=== PATIENT | male | born 1975 | race Caucasian/White ===

== ENCOUNTER 2021-08-14 18:25 | Outpatient (REF) | payer OTHER, SELFPAY | END 2021-08-14 18:26 | disposition home or self-care (01) | LOC: HO.LNP 18:25 | PROVIDERS: Visit Provider Family Medicine | DX: Z20.822 Contact with and (suspected) exposure to COVID-19 (principal); B34.9 Viral infection, unspecified | CPT/HCPCS: U0003; U0005 ==

== ENCOUNTER 2021-11-13 10:20 | Outpatient (REF) | payer OTHER, SELFPAY ==
[2021-11-13 10:45] LABS: MANUAL DIFF FLAG NO
[2021-11-13 10:58] LABS: Basophils Absolute Auto 0.1 X10*3/uL (0.0-0.2); Basophils Percent Auto 1.1 % (0-2); Eosinophils Absolute Auto 0.1 X10*3/uL (0.0-0.4); Eosinophils Percent Auto 2.5 % (0-4); Hematocrit 42.9 % (42.0-52.0); Hemoglobin 14.8 g/dl (14.0-18.0); Imm Gran Abs Auto 0.02 X10*3/uL (0.00-0.03); Imm Gran Pct Auto 0.4 % (0.0-0.4); Lymphocytes Absolute Auto 1.4 X10*3/uL (1.2-4.9); Lymphocytes Percent Auto 24.2 % (20-40); Mean Corpuscular HGB Conc 34.5 g/dl (31.0-36.0); Mean Corpuscular Hemoglobin 29.8 pg (27.0-33.0); Mean Corpuscular Volume 86.5 fL (80.0-98.0); Mean Platelet Volume 10.5 fL (9.4-12.4); Monocytes Absolute Auto 0.4 X10*3/uL (0.1-1.2); Monocytes Percent Auto 7.7 % (2-11); Neutrophils Absolute Auto 3.6 x10*3/uL (2.0-8.3); Neutrophils Percent Auto 64.1 % (45-73); Platelet Count 195 X10*3/uL (160-400); Red Blood Count 4.96 X10*6/uL (4.60-5.80); Red Cell Distribution Width 12.3 % (11.0-16.0); White Blood Count 5.6 X10*3/uL (4.8-10.8)
[2021-11-13 11:43] LABS: Alanine Aminotransferase 50 U/L (0-40); Albumin Level 4.6 g/dL (3.5-5.0); Alkaline Phosphatase 59 U/L (39-117); Anion Gap 11 (12-20); Aspartate Amino Transferase 23 U/L (5-37); Bilirubin Total 0.8 mg/dL (0.0-1.0); Blood Urea Nitrogen 12 mg/dL (9-16); Calcium 9.6 mg/dL (8.4-10.2); Carbon Dioxide 30 mmol/L (22-29); Chloride 104 mmol/L (96-108); Cholesterol 161 mg/dL; Estimated Glomerular Filt Rate > 60; Glucose Fasting 101 mg/dL (60-99); HDL Cholesterol 37 mg/dL; LDL Cholesterol Calculated 100 mg/dl; Sodium 141 mmol/L (135-145); Total Protein 7.1 g/dL (6.5-8.0); Triglycerides 121 mg/dL
[2021-11-13 11:49] LABS: Thyroid Stimulating Hormone 1.01 uIU/mL (0.32-4.0)
== END 2021-11-13 10:21 | disposition home or self-care (01) ==
LOC: HO.LAB 10:20
PROVIDERS: PCP Nurse Practitioner Family; Visit Provider Nurse Practitioner Family
DX: E78.00 Pure hypercholesterolemia, unspecified (principal)
CPT/HCPCS: 36415; 80053; 80061; 84443; 85025

== ENCOUNTER 2022-04-15 06:46 | Outpatient (REF) | payer OTHER, SELFPAY ==
[2022-04-15 07:00] LABS: MANUAL DIFF FLAG NO
[2022-04-15 07:23] LABS: Basophils Absolute Auto 0.1 X10*3/uL (0.0-0.2); Basophils Percent Auto 1.3 % (0-2); Eosinophils Absolute Auto 0.2 X10*3/uL (0.0-0.4); Eosinophils Percent Auto 3.2 % (0-4); Hematocrit 42.8 % (42.0-52.0); Hemoglobin 14.7 g/dl (14.0-18.0); Imm Gran Abs Auto 0.02 X10*3/uL (0.00-0.03); Imm Gran Pct Auto 0.3 % (0.0-0.4); Lymphocytes Absolute Auto 1.7 X10*3/uL (1.2-4.9); Lymphocytes Percent Auto 26.5 % (20-40); Mean Corpuscular HGB Conc 34.3 g/dl (31.0-36.0); Mean Corpuscular Hemoglobin 29.5 pg (27.0-33.0); Mean Corpuscular Volume 85.8 fL (80.0-98.0); Mean Platelet Volume 10.2 fL (9.4-12.4); Monocytes Absolute Auto 0.5 X10*3/uL (0.1-1.2); Monocytes Percent Auto 7.7 % (2-11); Neutrophils Absolute Auto 3.9 x10*3/uL (2.0-8.3); Platelet Count 191 X10*3/uL (160-400); Red Blood Count 4.99 X10*6/uL (4.60-5.80); Red Cell Distribution Width 12.3 % (11.0-16.0); White Blood Count 6.3 X10*3/uL (4.8-10.8)
[2022-04-15 07:55] LABS: Alanine Aminotransferase 50 U/L (0-40); Albumin Level 4.6 g/dL (3.5-5.0); Alkaline Phosphatase 61 U/L (39-117); Anion Gap 13 (12-20); Aspartate Amino Transferase 25 U/L (5-37); Blood Urea Nitrogen 15 mg/dL (9-16); Calcium 9.4 mg/dL (8.4-10.2); Carbon Dioxide 31 mmol/L (22-29); Chloride 103 mmol/L (96-108); Estimated Glomerular Filt Rate > 60; Glucose Random 96 mg/dL (60-115); Potassium 4.1 mmol/L (3.3-5.1); Sodium 143 mmol/L (135-145); Total Protein 6.9 g/dL (6.5-8.0)
== END 2022-04-15 06:47 | disposition home or self-care (01) ==
LOC: HO.LAB 06:46
PROVIDERS: PCP Nurse Practitioner Family; Visit Provider Nurse Practitioner Family
DX: E78.00 Pure hypercholesterolemia, unspecified (principal)
CPT/HCPCS: 36415; 80053; 85025

== ENCOUNTER 2022-12-11 10:25 | Outpatient (REF) | payer OTHER, SELFPAY ==
[2022-12-11 10:44] LABS: MANUAL DIFF FLAG NO
[2022-12-11 11:23] LABS: Basophils Absolute Auto 0.1 X10*3/uL (0.0-0.2); Basophils Percent Auto 1.2 % (0-2); Eosinophils Absolute Auto 0.2 X10*3/uL (0.0-0.4); Eosinophils Percent Auto 3.1 % (0-4); Hematocrit 43.7 % (42.0-52.0); Imm Gran Abs Auto 0.02 X10*3/uL (0.00-0.03); Imm Gran Pct Auto 0.3 % (0.0-0.4); Lymphocytes Absolute Auto 1.9 X10*3/uL (1.2-4.9); Lymphocytes Percent Auto 28.1 % (20-40); Mean Corpuscular HGB Conc 34.3 g/dl (31.0-36.0); Mean Corpuscular Hemoglobin 29.5 pg (27.0-33.0); Mean Corpuscular Volume 85.9 fL (80.0-98.0); Mean Platelet Volume 10.8 fL (9.4-12.4); Monocytes Absolute Auto 0.5 X10*3/uL (0.1-1.2); Monocytes Percent Auto 7.8 % (2-11); Neutrophils Percent Auto 59.5 % (45-73); Platelet Count 211 X10*3/uL (160-400); Red Blood Count 5.09 X10*6/uL (4.60-5.80); Red Cell Distribution Width 12.5 % (11.0-16.0); White Blood Count 6.7 X10*3/uL (4.8-10.8)
[2022-12-11 12:02] LABS: Alanine Aminotransferase 50 U/L (0-40); Albumin Level 4.7 g/dL (3.5-5.0); Alkaline Phosphatase 64 U/L (39-117); Anion Gap 13 (12-20); Aspartate Amino Transferase 25 U/L (5-37); Bilirubin Total 1.2 mg/dL (0.0-1.0); Blood Urea Nitrogen 13 mg/dL (9-16); Calcium 9.6 mg/dL (8.4-10.2); Carbon Dioxide 29 mmol/L (22-29); Chloride 104 mmol/L (96-108); Cholesterol 182 mg/dL; Estimated Glomerular Filt Rate > 60; Glucose Fasting 94 mg/dL (60-99); HDL Cholesterol 42 mg/dL; LDL Cholesterol Calculated 114 mg/dl; Sodium 142 mmol/L (135-145); Triglycerides 134 mg/dL
== END 2022-12-11 10:26 | disposition home or self-care (01) ==
LOC: HO.LAB 10:25
PROVIDERS: PCP Nurse Practitioner Family; Visit Provider Nurse Practitioner Family
DX: I10 Essential (primary) hypertension (principal); E78.00 Pure hypercholesterolemia, unspecified
CPT/HCPCS: 36415; 80053; 80061; 85025

== ENCOUNTER 2023-04-16 09:48 | Outpatient (REF) | payer OTHER, SELFPAY ==
[2023-04-16 09:58] LABS: MANUAL DIFF FLAG NO
[2023-04-16 10:13] LABS: Basophils Absolute Auto 0.1 X10*3/uL (0.0-0.2); Basophils Percent Auto 0.8 % (0-2); Eosinophils Absolute Auto 0.2 X10*3/uL (0.0-0.4); Eosinophils Percent Auto 3.6 % (0-4); Hemoglobin 15.2 g/dl (14.0-18.0); Imm Gran Abs Auto 0.02 X10*3/uL (0.00-0.03); Imm Gran Pct Auto 0.3 % (0.0-0.4); Lymphocytes Absolute Auto 1.6 X10*3/uL (1.2-4.9); Lymphocytes Percent Auto 25.5 % (20-40); Mean Corpuscular HGB Conc 34.5 g/dl (31.0-36.0); Mean Corpuscular Hemoglobin 29.3 pg (27.0-33.0); Mean Corpuscular Volume 84.8 fL (80.0-98.0); Mean Platelet Volume 10.2 fL (9.4-12.4); Monocytes Absolute Auto 0.4 X10*3/uL (0.1-1.2); Monocytes Percent Auto 5.9 % (2-11); Neutrophils Absolute Auto 3.9 x10*3/uL (2.0-8.3); Neutrophils Percent Auto 63.9 % (45-73); Platelet Count 207 X10*3/uL (160-400); Red Blood Count 5.19 X10*6/uL (4.60-5.80); Red Cell Distribution Width 12.2 % (11.0-16.0); White Blood Count 6.1 X10*3/uL (4.8-10.8)
[2023-04-16 10:42] LABS: Alanine Aminotransferase 58 U/L (0-40); Albumin Level 4.7 g/dL (3.5-5.0); Alkaline Phosphatase 61 U/L (39-117); Anion Gap 11 (12-20); Aspartate Amino Transferase 26 U/L (5-37); Blood Urea Nitrogen 12 mg/dL (9-16); Calcium 9.6 mg/dL (8.4-10.2); Carbon Dioxide 31 mmol/L (22-29); Chloride 105 mmol/L (96-108); Cholesterol 169 mg/dL (<200); Estimated Glomerular Filt Rate > 60; Glucose Random 105 mg/dL (60-115); HDL Cholesterol 40 mg/dL (>40); LDL Cholesterol Calculated 103 mg/dL (<100); Sodium 143 mmol/L (135-145); Total Protein 7.3 g/dL (6.5-8.0); Triglycerides 130 mg/dL (<150)
[2023-04-16 10:57] LABS: Thyroid Stimulating Hormone 1.66 uIU/mL (0.32-4.0)
== END 2023-04-16 09:49 | disposition home or self-care (01) ==
LOC: HO.LAB 09:48
PROVIDERS: PCP Nurse Practitioner Family; Visit Provider Nurse Practitioner Family
DX: I10 Essential (primary) hypertension (principal); E78.00 Pure hypercholesterolemia, unspecified
CPT/HCPCS: 36415; 80053; 80061; 84443; 85025

== ENCOUNTER 2023-05-17 07:04 | Outpatient (REF) | payer OTHER, SELFPAY ==
[2023-05-17 07:47] LABS: Hematocrit 42.8 % (42.0-52.0); Hemoglobin 14.5 g/dl (14.0-18.0); Mean Corpuscular HGB Conc 33.9 g/dl (31.0-36.0); Mean Corpuscular Hemoglobin 29.3 pg (27.0-33.0); Mean Corpuscular Volume 86.5 fL (80.0-98.0); Mean Platelet Volume 10.9 fL (9.4-12.4); Platelet Count 212 X10*3/uL (160-400); Red Blood Count 4.95 X10*6/uL (4.60-5.80); Red Cell Distribution Width 12.5 % (11.0-16.0)
[2023-05-17 08:19] LABS: Alanine Aminotransferase 51 U/L (0-40); Albumin Level 4.5 g/dL (3.5-5.0); Alkaline Phosphatase 61 U/L (39-117); Anion Gap 14 (12-20); Aspartate Amino Transferase 28 U/L (5-37); Blood Urea Nitrogen 13 mg/dL (9-16); Calcium 9.5 mg/dL (8.4-10.2); Carbon Dioxide 27 mmol/L (22-29); Chloride 104 mmol/L (96-108); Cholesterol 155 mg/dL (<200); Estimated Glomerular Filt Rate > 60; Glucose Random 106 mg/dL (60-115); HDL Cholesterol 35 mg/dL (>40); LDL Cholesterol Calculated 94 mg/dL (<100); Potassium 3.6 mmol/L (3.3-5.1); Sodium 141 mmol/L (135-145); Total Protein 7.2 g/dL (6.5-8.0); Triglycerides 133 mg/dL (<150)
== END 2023-05-17 07:05 | disposition home or self-care (01) ==
LOC: HO.LAB 07:04
PROVIDERS: Visit Provider Nurse Practitioner Family
DX: I10 Essential (primary) hypertension (principal); E78.00 Pure hypercholesterolemia, unspecified; K21.9 Gastro-esophageal reflux disease without esophagitis
CPT/HCPCS: 36415; 80053; 80061; 85027

== ENCOUNTER 2023-08-10 15:26 | Outpatient (AMB) | payer OTHER, SELFPAY ==
--- NOTE | 2023-08-10 15:36 | A.OFFPC_ITS ---
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 Allergies No Known Allergies Allergy (Unknown, Verified 08/10/23 15:54) Medication List - Last Reconciled 08/10/23 by Neil Morris PA-C amlodipine 10 mg PO DAILY atorvastatin 10 mg PO DAILY clonazepam 1 mg PO BEDTIME PRN labetalol 0 mg PO sertraline 100 mg PO DAILY spironolacton-hydrochlorothiaz 25-25 mg 1 tab PO DAILY valsartan 80 mg PO DAILY Tobacco use date assessed: 08/10/23 Dental Screening Dental Screen Date: 08/10/23 Did you have a dental visit in the last 12 months?: No Did you have a dental problem in the last 6 months where you did not have access to dental care?: No HPI 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 Patient has a past medical history significant for obesity, hypertension, anxiety. Previous PCP was Douglas Page at [facility] in [place] Hypertension: Blood pressure elevated today in office. Fortunately he is asymptomatic without any headache, chest pain or dizziness.. He is on several different blood pressure medications at this time. He reports he has been on clonazepam which likely reason for his elevated blood pressures as he is feeling a bit anxious. .. Anxiety: Continues on high-dose SSRI therapy and daily use of clonazepam 1 mg. We did have a long discussion about benzodiazepine dependency any does agree and understand he is likely dependent on benzodiazepine. Advised to start trying to use clonazepam on an as-needed [id number] basis to try to reduce his overall dosing of benzodiazepine any agrees and understands. .. Hyperlipidemia: Fasting lipid panel done in fall showing appropriate total cholesterol and LDL. Continues on ator 10mg with good effect. Vaccines: Up-to-date with COVID vaccine, flu vaccine, needs tetanus vaccine- consider colon Cancer screen: Father diagnosed with colon cancer at age 35. Patient willing to do colonoscopy. [facility] Family History (Updated 08/10/23 @ 16:01 by Neil Morris PA-C) Father Colon cancer Social History (Updated 08/10/23 @ 16:01 by Neil Morris PA-C) Alcohol intake: current Alcohol intake frequency: holidays/special occasions only Patient Tobacco Use Status: Never used Tobacco service: No Current occupational status: employed Current occupation: [employer] Cognitive needs: No Hearing needs: No Vision needs: No Questionnaire PHQ-9 Over the last 2 weeks, how often have you been bothered by any of the following problems? 1. Little interest or pleasure in doing things: not at all 2. Feeling down, depressed, or hopeless: not at all 3. Trouble falling or staying asleep, or sleeping too much: not at all 4. Feeling tired or having little energy: not at all 5. Poor appetite or overeating: not at all 6. Feeling bad about yourself - or that you are a failure or have let yourself or your family down: not at all 7. Trouble concentrating on things, such as reading the newspaper or watching television: not at all 8. Moving or speaking so slowly that other people could have noticed. Or the opposite - being so fidgety or restless that you have been moving around a lot more than usual: not at all 9. Thoughts that you would be better off or of hurting yourself in some way: not at all Total score: 0 Depression Screening Interpretation: Negative Depression Screening Done: Yes 82704 - PHQ-9 Billing: Yes Source: Developed by Drs. Slava Griffin, Gretchen Prado, Mervin Lockhart and colleagues, with an educational chase from [employer]. Thrive Questionnaire Date Thrive assessed: 08/10/23 I am a: Patient What is your living situation today?: I have a steady place to live Within the past 12 months, did the food you bought not last and you didn't have the money to get more?: Never true Within the past 12 months, did you worry whether your food would run out before you got money to buy more?: Never true Do you have trouble paying for medicines?: No Do you have trouble getting transportation to medical appointments?: No Do you have trouble paying your heating and electricity bill?: No Do you have trouble taking care of your child, family member or friend?: No Do you have trouble with day-to-day activities such as bathing, preparing meals, shopping, managing finances, etc.?: No Are you currently unemployed and looking for a job?: No Are you interested in more education?: No AUDIT C Alcohol Use Questionnaire (AUDIT-C) 1. How often do you have a drink containing alcohol?: Never 2. How many drinks containing alcohol do you have on a typical day when you are drinking?: 1 or 2 3. How often do you have six or more drinks on one occasion?: Never Total Score: 0 LAUREN-7 AMB Questionnaire LAUREN-7 Date LAUREN - 7 assessed: 08/10/23 Feeling nervous, anxious, or on edge: 0 = Not at all Not being able to stop or control worryin = Not at all Worrying too much about different things: 0 = Not at all Trouble relaxin = Not at all Being so restless that it is hard to sit still: 0 = Not at all Becoming easily annoyed or irritable: 0 = Not at all Feeling afraid as if something awful might happen: 0 = Not at all Total LAUREN-7 score (0-4 normal; 5-9 mild; 10-14 moderate; 15-21 severe): 0 Source: Developed by Drs. Slava Griffin, Gretchen Prado, Mervin Lockhart and colleagues, with an educational chase from [employer]. LAUREN-7 Assessment Billing LAUREN-7 Assessment Tool: LAUREN-7 Assessment 36591 Review of Systems Const Denies body aches, Denies chills, Denies excessive sweating, Denies fatigue, Denies fever(s) and Denies headache(s) Eyes Denies blurry vision ENT Denies dysphagia, Denies vertigo, Denies dizziness, Denies headache(s), Denies hearing loss and Denies tinnitus Card Denies chest pain, Denies chest pain with activity, Denies syncope, Denies irregular heart rhythm and Denies dyspnea Resp Denies chest congestion, Denies cough, Denies hemoptysis, Denies dyspnea and Denies wheezing GI Denies abdominal pain, Denies melena, Denies hematochezia, Denies coffee ground emesis, Denies dysphagia, Denies diarrhea, Denies nausea and Denies vomiting Denies difficulty urinating, Denies dysuria, Denies urinary frequency, Denies urinary hesitancy and Denies urinary urgency Musc Denies arthralgias, Denies limited range of motion, Denies muscle cramps and Denies muscle weakness Skin/Breast Denies rash and Denies skin ulcer Neuro Denies Abnormal speech present, Denies confusion, Denies vertigo, Denies dizziness, Denies syncope, Denies headache(s), Denies memory loss and Denies seizure-like activity Psych Denies anxiety, Denies confusion, Denies depression, Denies memory loss, Denies panic attacks and Denies paranoia Endo Denies excessive sweating, Denies fatigue, Denies flushing, Denies polydipsia and Denies polyuria Aller/Immun Denies wheezing Physical exam (Primary Care) Vital Signs: Last Vital Signs Pulse 76 08/10/23 15:37 BP 162/102 H 08/10/23 15:37 Pulse Ox 97 08/10/23 15:37 Oxygen Delivery Method Room Air 08/10/23 15:37 BMI result Body Mass Index 43.1 BMI Assessment/Plan discussion: High Tobacco/Smoking Status: Tobacco use Status Tobacco use date assessed 08/10/23 08/10/23 15:37 Patient Tobacco Use Status Never used Tobacco 08/10/23 16:01 PHQ-9: PHQ-9 Score PHQ-9: Total score 0 08/10/23 16:23 Depression Screening Interpretation: Negative Thrive Assessment: Date of Thrive Assessment Date Thrive assessed 08/10/23 08/10/23 15:42 Const Other: Morbidly obese General: cooperative, comfortable, no acute distress, alert and awake; No confusion Orientation/consciousness: oriented to person, oriented to place, patient oriented x3 and No confusion HENMT Head: Yes normocephalic Ears: external ears normal and TM's normal bilaterally Face and sinus: No sinus tenderness Mouth: Normal oral and palatal mucosa present and tongue normal Teeth and gingiva: dentition normal and gingiva normal Throat: Yes posterior oropharynx normal, Yes tonsils normal and Yes uvula midline Eyes Conjunctivae: conjunctivae normal Sclerae: sclerae normal Pupils: Equal, round and reactive pupils present EOM: EOMs intact bilaterally Direct Ophthalmoscopy: No no photophobia Neck Neck: Yes no lymphadenopathy, No tender and Yes no JVD Thyroid: Thyroid normal Carotids: no bruits Chest Chest palpation & inspection: no tenderness Resp Effort & Inspection: normal respiratory effort, no audible wheezes, not labored and no stridor Auscultation: no crackles, no rales, no rhonchi and no wheezes Cardio Jugular venous distension: no JVD Rate: regular rate, not bradycardic and not tachycardic Rhythm: regular rhythm Bruits: no carotid bruits Peripheral pulses: Peripheral pulses 2+ throughout GI Inspection: Yes normal to inspection, No abdominal wall ecchymosis and No visible herniation Palpation (GI): Soft to palpation, nontender, no guarding, not rigid and No hepatosplenomegaly present Auscultation: normoactive bowel sounds General: Yes no CVA tenderness Back/Spine/Pelvis Back: no CVA tenderness and No back tenderness Cervical Spine: cervical ROM normal Thoracic/Lumbar Spine: thoracic and lumbar spine normal to inspection, straight leg raise negative bilaterally, No thoraco-lumbar ROM limited and No lumbar spinal tenderness Skin Lesions: no lesions Rashes: no rashes Wounds: no wounds Neuro General: oriented to person, oriented to place, patient oriented x3, CN's II-XI intact bilaterally and No confusion Cranial nerves: Yes Equal, round and reactive pupils present and Yes Normal accommodation reflex present Cognition (Neuro): normal cognition Speech: No Abnormal speech present Gait exam (Neuro): Normal gait present Motor exam (neuro): 5/5 motor strength present throughout Extrem Right upper extremity: full ROM; no cyanosis Left upper extremity: full ROM; no cyanosis Right lower extremity: no edema Left lower extremity: no edema Psych Appearance: grossly normal Mental Status: mental status grossly normal Affect: normal affect Attitude: cooperative Thought process: Normal thought process present Assessment and Plan Assessment & Plan (1) Annual physical exam: Code(s): Z00.00 - Encounter for general adult medical examination without abnormal findings (2) HTN (hypertension): Code(s): I10 - Essential (primary) hypertension Qualifiers: Hypertension type: primary hypertension Qualified Code(s): I10 - Essential (primary) hypertension Plan: Patient's blood pressure elevated today in office. On several different blood pressure medications at this time. He does report he is out of clonazepam which is likely the reason for his elevated blood pressure. Advised to start monitoring blood pressure at home with goal pressure to be below 140/90. Will consider evaluating for secondary forms hypertension (3) HLD (hyperlipidemia): Code(s): E78.5 - Hyperlipidemia, unspecified Qualifiers: Hyperlipidemia type: mixed hyperlipidemia Qualified Code(s): E78.2 - Mixed hyperlipidemia Plan: Patient's most recent lipid panel showing appropriate total cholesterol and LDL. Will continue current statin dose. Goal LDL to remain below 130 (4) Obese: Code(s): E66.9 - Obesity, unspecified Qualifiers: Body mass index: BMI 40.0-44.9 Obesity classification: adult class 3 (BMI >= 40) Obesity type: due to excess calories Serious obesity comorbidity presence: without serious comorbidity Qualified Code(s): E66.01 - Morbid (severe) obesity due to excess calories; Z68.41 - Body mass index [BMI] 40.0-44.9, adult Plan: Patient does understand his BMI is over 40 will work on trying to be physically active and adapting to better eating habits to reduce his weight (5) Colon cancer screening: Code(s): Z12.11 - Encounter for screening for malignant neoplasm of colon Plan: Patient does a father with colon cancer at age 35. He is willing to get colonoscopy (6) LAUREN (generalized anxiety disorder): Code(s): F41.1 - Generalized anxiety disorder Plan: As per HPI (7) Family history of colon cancer: Code(s): Z80.0 - Family history of malignant neoplasm of digestive organs Orders: Orders Microalbumin, Random (w Creat) 08/10/23 I10 - Essential (primary) hypertension Lipid Panel 08/10/23 I10 - Essential (primary) hypertension Comprehensive [place]. Panel Fast 08/10/23 I10 - Essential (primary) hypertension Referrals Gastroenterology Referral Z12.11 - Encounter for screening for malignant neoplasm of colon, Z80.0 - Family history of malignant neoplasm of digestive organs Medications: Changed From clonazepam 1 mg PO BEDTIME PRN F41.1 - Generalized anxiety disorder To clonazepam 1 mg PO BEDTIME 30 days 30 tabs 2RF F41.1 - Generalized anxiety disorder From atorvastatin 10 mg PO DAILY I10 - Essential (primary) hypertension To atorvastatin 10 mg PO DAILY 90 days 90 tabs 1RF I10 - Essential (primary) hypertension From sertraline 100 mg PO DAILY F41.1 - Generalized anxiety disorder To sertraline 100 mg PO DAILY 90 days 90 tabs 1RF F41.1 - Generalized anxiety disorder From valsartan 80 mg PO DAILY I10 - Essential (primary) hypertension To valsartan 80 mg PO DAILY 90 days 90 tabs 1RF I10 - Essential (primary) hypertension From amlodipine 10 mg PO DAILY I10 - Essential (primary) hypertension To amlodipine 10 mg PO DAILY 90 days 90 tabs 1RF I10 - Essential (primary) hypertension From labetalol PO I10 - Essential (primary) hypertension To labetalol 100 mg PO DAILY 90 days 90 tabs 1RF I10 - Essential (primary) hypertension From spironolacton-hydrochlorothiaz 25-25 mg 1 tab PO DAILY I10 - Essential (primary) hypertension To spironolacton-hydrochlorothiaz 25-25 mg 1 tab PO DAILY 90 days 90 tabs 1RF I10 - Essential (primary) hypertension Coding Level of Care Code New Pt Prev Care 40-64y(89475) Diagnoses Annual physical exam Z00.00 Primary hypertension I10 Hypertension type: primary hypertension Mixed hyperlipidemia E78.2 Hyperlipidemia type: mixed hyperlipidemia Class 3 severe obesity due to excess calories without serious comorbidity with body mass index (BMI) of 40.0 to 44.9 in adult E66.01; Z68.41 Body mass index: BMI 40.0-44.9 Obesity classification: adult class 3 (BMI >= 40) Obesity type: due to excess calories Serious obesity comorbidity presence: without serious comorbidity Colon cancer screening Z12.11 LAUREN (generalized anxiety disorder) F41.1 Family history of colon cancer Z80.0 Additional Codes LAUREN-7 Assessment Billing - LAUREN-7 Assessment Tool: LAUREN-7 Assessment 85095 ([id number])
[2023-08-10 15:37] VITALS: BP 162/102; PULSE 76; O2SAT 97; BMI 43.1
== END 2023-08-10 16:21 | disposition home or self-care (01) ==
PROVIDERS: PCP Physician Assistant; Visit Provider Physician Assistant
DX: Z00.00 Encounter for general adult medical examination without abnormal findings (principal); E66.01 Morbid (severe) obesity due to excess calories; Z68.41 Body mass index [BMI] 40.0-44.9, adult; I10 Essential (primary) hypertension; E78.2 Mixed hyperlipidemia; F41.1 Generalized anxiety disorder; Z80.0 Family history of malignant neoplasm of digestive organs
CPT/HCPCS: 99386

== ENCOUNTER 2023-11-05 08:55 | Outpatient (REF) | payer OTHER, SELFPAY ==
[2023-11-05 10:09] LABS: Alanine Aminotransferase 53 U/L (0-40); Albumin Level 4.6 g/dL (3.5-5.0); Alkaline Phosphatase 62 U/L (39-117); Anion Gap 13 (12-20); Aspartate Amino Transferase 26 U/L (5-37); Bilirubin Total 1.1 mg/dL (0.0-1.0); Blood Urea Nitrogen 11 mg/dL (9-16); Calcium 9.5 mg/dL (8.4-10.2); Carbon Dioxide 30 mmol/L (22-29); Chloride 103 mmol/L (96-108); Cholesterol 160 mg/dL (<200); Estimated Glomerular Filt Rate > 60; Glucose Fasting 117 mg/dL (60-99); HDL Cholesterol 39 mg/dL (>40); LDL Cholesterol Calculated 96 mg/dL (<100); Potassium 3.8 mmol/L (3.3-5.1); Sodium 142 mmol/L (135-145); Total Protein 7.3 g/dL (6.5-8.0); Triglycerides 128 mg/dL (<150)
[2023-11-05 14:34] LABS: Creatinine Urine 205.97 mg/dL; Microalbum/Creatinine Ratio Ur 7.7 ug/mg cr (<30)
== END 2023-11-05 08:56 | disposition home or self-care (01) ==
LOC: HO.LAB 08:55
PROVIDERS: PCP Physician Assistant; Visit Provider Physician Assistant
DX: I10 Essential (primary) hypertension (principal)
CPT/HCPCS: 36415; 80053; 80061; 82043; 82570

== ENCOUNTER 2023-11-09 11:30 | Outpatient (AMB) | payer OTHER, SELFPAY ==
[2023-11-09 11:31] VITALS: BP 136/94; PULSE 84; O2SAT 97; BMI 43.3
--- NOTE | 2023-11-09 11:31 | MHC.PC.OV ---
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 Accompanied by: Self / Same As Patient Allergies No Known Allergies Allergy (Unknown, Verified 11/09/23 11:44) Medication List - Last Reconciled 11/09/23 by Neil Morris PA-C amlodipine 10 mg PO DAILY 90 days atorvastatin 10 mg PO DAILY 90 days clonazepam 1 mg PO BEDTIME 30 days labetalol 100 mg PO DAILY 90 days sertraline 100 mg PO DAILY 90 days spironolacton-hydrochlorothiaz 25-25 mg 1 tab PO DAILY 90 days valsartan 80 mg PO DAILY 90 days Tobacco use date assessed: 08/10/23 Dental Screening Dental Screen Date: 08/10/23 HPI f/u HTN HPI Details Patient is a 48-year-old male here today for a follow-up visit l. Patient has a past medical history significant for obesity, hypertension, anxiety. Hypertension: Blood pressure elevated today in office though has improved from previous. He is on several different blood pressure medications at this time. He otherwise denies any chest pain, shortness for breath, vision issues. He does not regularly monitor blood pressure at home and will start doing so. . .. Anxiety: Continues on high-dose SSRI therapy and daily use of clonazepam 1 mg. We did have a long discussion about benzodiazepine dependency any does agree and understand he is likely dependent on benzodiazepine. Advised to start trying to use clonazepam on an as-needed [id number]-qceev-lqg basis to try to reduce his overall dosing of benzodiazepine any agrees and understands. .. Hyperlipidemia: Recent fasting lipid panel showing appropriate total cholesterol and LDL. Continues on ator 10mg with good effect. Reviewed labs with patient and noted elevated fasting blood sugar Laboratory Tests 12/11/22 05/17/23 11/05/23 10:42 07:14 09:05 Creatinine 0.88 Fasting Glucose 117 H ALT 50 H 51 H 53 H Cholesterol 155 160 LDL Cholesterol, C alc 94 Urine Microalbumin 11/05/23 09:10 Creatinine Fasting Glucose ALT Cholesterol LDL Cholesterol, C alc Urine Microalbumin 16.0 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 Cognitive needs: No Hearing needs: No Vision needs: No Questionnaire Thrive Questionnaire Date Thrive assessed: 08/10/23 LAUREN-7 AMB Questionnaire LAUREN-7 Date LAUREN - 7 assessed: 08/10/23 Source: Developed by Drs. Slava Griffin, Gretchen Prado, Mervin Lockhart and colleagues, with an educational chase from [employer]. Review of Systems Const Denies headache(s) Eyes Denies loss of vision ENT Denies vertigo, Denies dizziness, Denies headache(s) and Denies sore throat Card Denies chest pain, Denies leg edema and Denies lightheadedness Resp Denies cough, Denies hemoptysis and Denies wheezing GI Denies abdominal pain, Denies melena, Denies constipation, Denies diarrhea and Denies vomiting Denies dysuria, Denies urinary frequency and Denies urinary urgency Musc Denies arthralgias, Denies joint swelling, Denies numbness and Denies tingling Neuro Denies Abnormal speech present, Denies behavioral changes, Denies vertigo, Denies dizziness, Denies headache(s), Denies loss of vision, Denies memory loss, Denies numbness and Denies tingling Psych Denies anxiety, Denies behavioral changes, Denies depression, Denies memory loss and Denies panic attacks Jayy/Lymph Denies easy bleeding and Denies easy bruising Aller/Immun Denies wheezing Physical exam (Primary Care) Vital Signs: Last Vital Signs Pulse 84 11/09/23 11:31 BP 145/80 H 11/09/23 12:03 Pulse Ox 97 11/09/23 11:31 Oxygen Delivery Method Room Air 11/09/23 11:31 BMI result Body Mass Index 43.3 Tobacco/Smoking Status: Tobacco use Status Tobacco use date assessed 08/10/23 11/09/23 11:37 Patient Tobacco Use Status Never used Tobacco 04/10/24 11:37 e-Cigarette/Vaping Use Never Used 11/09/23 11:41 Thrive Assessment: Date of Thrive Assessment Date Thrive assessed 08/10/23 11/09/23 11:37 Const General: healthy appearing, no acute distress, alert and awake Nutritional Appearance: well nourished Orientation/consciousness: oriented to person, oriented to place and oriented to time HENMT Ears: TM's normal bilaterally General nose exam: Normal nasal mucous membranes and turbinates present Eyes Conjunctivae: conjunctivae normal Sclerae: sclerae normal Pupils: Equal, round and reactive pupils present Neck Neck: Yes no lymphadenopathy and Yes no JVD Thyroid: Thyroid normal Carotids: no bruits Resp Effort & Inspection: normal respiratory effort and not tachypneic Auscultation: no crackles, no rales, no rhonchi and no wheezes Cardio Rate: regular rate Rhythm: regular rhythm Heart sounds: no murmurs and normal S1 and S2 GI Palpation (GI): Soft to palpation, nontender, no hepatomegaly and no splenomegaly Auscultation: normal bowel sounds Skin General skin exam: no rashes or lesions noted and dry skin Neuro General: oriented to person, oriented to place and oriented to time Cranial nerves: Yes Equal, round and reactive pupils present Speech: No Abnormal speech present Gait exam (Neuro): Normal gait present Motor exam (neuro): no tremor noted Extrem Right upper extremity: full ROM Left upper extremity: full ROM Right lower extremity: full ROM; no edema Left lower extremity: full ROM; no edema Psych Mental Status: mental status grossly normal Speech and movement: Normal speech and movement present Affect: normal affect Attitude: cooperative Thought process: Normal thought process present Assessment and Plan Assessment & Plan (1) HTN (hypertension): Code(s): I10 - Essential (primary) hypertension Qualifiers: Hypertension type: primary hypertension Qualified Code(s): I10 - Essential (primary) hypertension Plan: Patient's blood pressure elevated today in office. Blood pressure has improved since last office visit, he does not regularly monitor blood pressure at home and is now agreeable to do so. Advised to start monitoring blood pressure at home with goal pressure to be below 140/90. (2) HLD (hyperlipidemia): Code(s): E78.5 - Hyperlipidemia, unspecified Qualifiers: Hyperlipidemia type: mixed hyperlipidemia Qualified Code(s): E78.2 - Mixed hyperlipidemia Plan: Patient's most recent lipid panel showing appropriate total cholesterol and LDL. Will continue current statin dose. Goal LDL to remain below 130 (3) Obese: Code(s): E66.9 - Obesity, unspecified Qualifiers: Body mass index: BMI 40.0-44.9 Obesity classification: adult class 3 (BMI >= 40) Obesity type: due to excess calories Serious obesity comorbidity presence: without serious comorbidity Qualified Code(s): E66.01 - Morbid (severe) obesity due to excess calories; Z68.41 - Body mass index [BMI] 40.0-44.9, adult Plan: Has lost a small amount of weight since last office visit.. Patient does understand his BMI is over 40 will work on trying to be physically active and adapting to better eating habits to reduce his weight (4) LAUREN (generalized anxiety disorder): Code(s): F41.1 - Generalized anxiety disorder Plan: As per HPI- has a benzodiazepine dependency. Anxiety has been fairly well controlled with both SSRI therapy and benzodiazepine Continues with clonazepam 1 mg daily for past several years. (5) Impaired glucose metabolism: Code(s): R73.09 - Other abnormal glucose Plan: Noted elevated fasting blood sugar on most recent labs at 117. Will recheck fasting blood sugar and A1c to evaluate for diabetes Orders: Orders Lipid Panel Today E78.2 - Mixed hyperlipidemia Hemoglobin A1c Today R73.09 - Other abnormal glucose Comprehensive [place]. Panel Fast Today E78.2 - Mixed hyperlipidemia Medications: Changed From labetalol 100 mg PO DAILY 90 days 90 tabs 1RF I10 - Essential (primary) hypertension To labetalol Take 2 tabs in the AM and 2 tabs in the PM 200 mg (2 x 100 mg) PO BID 360 tabs 1RF 90 days I10 - Essential (primary) hypertension Refilled atorvastatin 10 mg PO DAILY 90 tabs 1RF 90 days I10 - Essential (primary) hypertension sertraline 100 mg PO DAILY 90 tabs 1RF 90 days F41.1 - Generalized anxiety disorder spironolacton-hydrochlorothiaz 25-25 mg 1 tab PO DAILY 90 tabs 1RF 90 days I10 - Essential (primary) hypertension clonazepam 1 mg PO BEDTIME 30 tabs 3RF 30 days F41.1 - Generalized anxiety disorder amlodipine 10 mg PO DAILY 90 tabs 1RF 90 days I10 - Essential (primary) hypertension valsartan 80 mg PO DAILY 90 tabs 1RF 90 days I10 - Essential (primary) hypertension Coding Level of Care Code Est Pt Level 4 (29316) Diagnoses Primary hypertension I10 Hypertension type: primary hypertension Mixed hyperlipidemia E78.2 Hyperlipidemia type: mixed hyperlipidemia Class 3 severe obesity due to excess calories without serious comorbidity with body mass index (BMI) of 40.0 to 44.9 in adult E66.01; Z68.41 Body mass index: BMI 40.0-44.9 Obesity classification: adult class 3 (BMI >= 40) Obesity type: due to excess calories Serious obesity comorbidity presence: without serious comorbidity LAUREN (generalized anxiety disorder) F41.1 Impaired glucose metabolism R73.09
[2023-11-09 12:03] VITALS: BP 145/80
== END 2023-11-09 12:02 | disposition home or self-care (01) ==
PROVIDERS: PCP Physician Assistant; Visit Provider Physician Assistant
DX: I10 Essential (primary) hypertension (principal); E78.2 Mixed hyperlipidemia; E66.01 Morbid (severe) obesity due to excess calories; Z68.41 Body mass index [BMI] 40.0-44.9, adult; F41.1 Generalized anxiety disorder; R73.09 Other abnormal glucose
CPT/HCPCS: 99214

== ENCOUNTER 2024-03-19 09:41 | Outpatient (AMB) | payer OTHER, SELFPAY ==
--- NOTE | 2024-03-19 10:26 | AM.OFFWIN_ITS ---
Intake Vital Signs 03/19/24 10:27 Height 5 ft 10 in Weight 297 lb BMI 42.6 BP 130/86 Blood Pressure Location Lt brachial Position Sitting Pulse 78 Pulse Source Pulse Oximeter Temp 98.2 F Temp Source Oral Pulse Oximetry (%) 98 Oxygen Delivery Method Room Air Intake Visit Reasons: EP- Irritated stomach Intake Note: pt c/o stomach discomfort. Started night. No diarrhea, No N/V. Disrupting sleep. Patient Tobacco Use Status: Never used Tobacco Allergies No Known Allergies Allergy (Unknown, Verified 03/19/24 10:33) Do you need a note to return to daycare/school/sports/work: Yes HPI HPI Comments History of Present Illness Details Patient is a 49-year-old male complaining of 4 days of stomach pain, he states it is not so much of a pain as it is annoying. He states he thought he ate something that was bad but the uncomfortableness did not go away and he did not diarrhea or constipation. But the pain just there, He denies any change in his bowels, he denies any fevers, nausea or vomiting. He states he is passing flatus. He says he had this happen before but it was because of food and it went away after a few days. Denies any change in his urinary habits or blood in his urine. 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 [employer] Cognitive needs: No Hearing needs: No Vision needs: No Review of Systems Const All systems reviewed & are unremarkable except as noted in HPI and below Physical Exam Vital Signs: Last Vital Signs Temp 98.2 F 03/19/24 10:27 Pulse 78 03/19/24 10:27 BP 130/86 03/19/24 10:27 Pulse Ox 98 03/19/24 10:27 Oxygen Delivery Method Room Air 03/19/24 10:27 BMI result Body Mass Index 42.6 Const General: cooperative, healthy appearing, comfortable, no acute distress and well developed Orientation/consciousness: patient oriented x3 Limitations: no limitations HEENT Head: Yes normal to inspection Ears: hearing grossly normal bilaterally General nose exam: Normal external nose present Face and sinus: Yes normal facial exam Eyes General: appearance normal, both eyes and all related structures Neck Neck: Yes normal visual inspection and Yes full ROM Resp Effort & Inspection: normal respiratory effort and able to speak in complete sentences Auscultation: clear to auscultation bilaterally Cardio Rate: regular rate Rhythm: regular rhythm Heart sounds: normal S1 and S2 GI Inspection: Yes normal to inspection Palpation (GI): Soft to palpation, nontender, No hepatosplenomegaly present, No Rebound tenderness present and Other GI palpation findings present (negative [place] sign) Auscultation: normal bowel sounds Skin General skin exam: no rashes or lesions noted Neuro General: patient oriented x3 Extrem General: Yes normal to inspection Assessment & Plan Assessment & Plan (1) Abdominal pain: Code(s): R10.9 - Unspecified abdominal pain Qualifiers: Abdominal location: generalized Qualified Code(s): R10.84 - Generalized abdominal pain Plan: Recommended Pepto-Bismol and will send [place] to pharmacy, gave him red flag warning signs and when to go to the emergency department and if no resolution in symptoms, he should follow up with his PCP. Plan see above Medications: New dicyclomine 20 mg (2 x 10 mg) PO QID PRN 14 caps 0RF abdominal pain Coding Level of Care Code Est Pt Level 3 (72182) Diagnoses Generalized abdominal pain R10.84 Abdominal location: generalized
[2024-03-19 10:27] VITALS: BP 130/86; PULSE 78; TEMP 36.8; O2SAT 98; BMI 42.6
== END 2024-03-19 10:52 | disposition home or self-care (01) ==
PROVIDERS: PCP Physician Assistant; Visit Provider Physician Assistant
DX: R10.84 Generalized abdominal pain (principal)
CPT/HCPCS: 99213

== ENCOUNTER 2024-05-11 08:25 | Outpatient (REF) | payer OTHER, SELFPAY ==
[2024-05-11 09:25] LABS: Estimated Average Glucose 94 mg/dL; Hemoglobin A1C 104.2841 umol/L; Hemoglobin A1c % 4.9 % (<6.0)
[2024-05-11 09:35] LABS: Alanine Aminotransferase 51 U/L (0-40); Albumin Level 4.7 g/dL (3.5-5.0); Alkaline Phosphatase 62 U/L (39-117); Anion Gap 10 (12-20); Aspartate Amino Transferase 28 U/L (5-37); Bilirubin Total 0.9 mg/dL (0.0-1.0); Blood Urea Nitrogen 13 mg/dL (9-16); Calcium 9.7 mg/dL (8.4-10.2); Carbon Dioxide 32 mmol/L (22-29); Chloride 105 mmol/L (96-108); Cholesterol 174 mg/dL (<200); Estimated Glomerular Filt Rate > 60; Glucose Fasting 108 mg/dL (60-99); HDL Cholesterol 39 mg/dL (>40); LDL Cholesterol Calculated 108 mg/dL (<100); Potassium 3.7 mmol/L (3.3-5.1); Sodium 143 mmol/L (135-145); Total Protein 7.2 g/dL (6.5-8.0); Triglycerides 138 mg/dL (<150)
== END 2024-05-11 08:26 | disposition home or self-care (01) ==
LOC: HO.LAB 08:25
PROVIDERS: PCP Physician Assistant; Visit Provider Physician Assistant
DX: R73.09 Other abnormal glucose (principal); E78.2 Mixed hyperlipidemia
CPT/HCPCS: 36415; 80053; 80061; 83036

== ENCOUNTER 2024-05-14 10:54 | Outpatient (AMB) | payer OTHER, SELFPAY ==
[2024-05-14 11:07] VITALS: BP 144/96; PULSE 80; O2SAT 98; BMI 43.5
--- NOTE | 2024-05-14 11:07 | MHC.PC.OV ---
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 Required: No Accompanied by: Self / Same As Patient Allergies No Known Allergies Allergy (Unknown, Verified 05/14/24 11:17) Medication List - Last Reconciled 05/14/24 by Neil Morris PA-C amlodipine 10 mg PO DAILY 90 days atorvastatin 10 mg PO DAILY 90 days clonazepam 1 mg PO BEDTIME 30 days dicyclomine 20 mg (2 x 10 mg) PO QID PRN labetalol 200 mg (2 x 100 mg) PO BID 90 days sertraline 100 mg PO DAILY 90 days spironolacton-hydrochlorothiaz 25-25 mg 1 tab PO DAILY 90 days valsartan 80 mg PO DAILY 90 days Tobacco use date assessed: 05/14/24 Dental Screening Dental Screen Date: 08/10/23 HPI f/u hTN/ HLD/ IGM HPI Details Patient is a 49-year-old male here today for a follow-up visit . Patient has a past medical history significant for obesity, hypertension, anxiety Hypertension: Blood pressure elevated today in office though has improved from previous. He is on several different blood pressure medications at this time. He otherwise denies any chest pain, shortness for breath, vision issues. He does not regularly monitor blood pressure at home and will start doing so. . .. Anxiety: Continues on high-dose SSRI therapy and daily use of clonazepam 1 mg. We did have a long discussion about benzodiazepine dependency any does agree and understand he is likely dependent on benzodiazepine. Advised to start trying to use clonazepam on an as-needed [id number] basis to try to reduce his overall dosing of benzodiazepine any agrees and understands. .. Hyperlipidemia: Recent fasting lipid panel showing appropriate total cholesterol and LDL. Continues on ator 10mg with good effect. 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 1. Little interest or pleasure in doing things: not at all 2. Feeling down, depressed, or hopeless: not at all 3. Trouble falling or staying asleep, or sleeping too much: not at all 4. Feeling tired or having little energy: not at all 5. Poor appetite or overeating: not at all 6. Feeling bad about yourself - or that you are a failure or have let yourself or your family down: not at all 7. Trouble concentrating on things, such as reading the newspaper or watching television: not at all 8. Moving or speaking so slowly that other people could have noticed. Or the opposite - being so fidgety or restless that you have been moving around a lot more than usual: not at all 9. Thoughts that you would be better off or of hurting yourself in some way: not at all Total score: 0 Depression Screening Interpretation: Negative Depression Screening Done: Yes 80445 - PHQ-9 Billing: Yes Source: Developed by Drs. Slava Griffin, Gretchen Prado, Mervin Lockhart and colleagues, with an educational chase from [employer]. Thrive Questionnaire Date Thrive assessed: 05/14/24 I am a: Patient What is your living situation today?: I have a steady place to live Within the past 12 months, did the food you bought not last and you didn't have the money to get more?: Never true Within the past 12 months, did you worry whether your food would run out before you got money to buy more?: Never true Do you have trouble paying for medicines?: No Do you have trouble getting transportation to medical appointments?: No Do you have trouble paying your heating and electricity bill?: No Do you have trouble taking care of your child, family member or friend?: No Do you have trouble with day-to-day activities such as bathing, preparing meals, shopping, managing finances, etc.?: No Are you currently unemployed and looking for a job?: No Are you interested in more education?: No Please select the resources that you would like help with: None Currently or been in a relationship where the following occur: No concerns reported THRIVE Score: 0 AUDIT C Alcohol Use Questionnaire (AUDIT-C) 1. How often do you have a drink containing alcohol?: Never 2. How many drinks containing alcohol do you have on a typical day when you are drinking?: 1 or 2 3. How often do you have six or more drinks on one occasion?: Never Total Score: 0 LAUREN-7 AMB Questionnaire LAUREN-7 Date LAUREN - 7 assessed: 05/14/24 Feeling nervous, anxious, or on edge: 0 = Not at all Not being able to stop or control worryin = Not at all Worrying too much about different things: 0 = Not at all Trouble relaxin = Not at all Being so restless that it is hard to sit still: 0 = Not at all Becoming easily annoyed or irritable: 0 = Not at all Feeling afraid as if something awful might happen: 0 = Not at all Total LAUREN-7 score (0-4 normal; 5-9 mild; 10-14 moderate; 15-21 severe): 0 Source: Developed by Drs. Slava Griffin, Gretchen Prado, Mervin Lockhart and colleagues, with an educational chase from [employer]. LAUREN-7 Assessment Billing LAUREN-7 Assessment Tool: LAUREN-7 Assessment 17970 Review of Systems Const Denies headache(s) Eyes Denies loss of vision ENT Denies vertigo, Denies dizziness, Denies headache(s) and Denies sore throat Card Denies chest pain, Denies leg edema and Denies lightheadedness Resp Denies cough, Denies hemoptysis and Denies wheezing GI Denies abdominal pain, Denies melena, Denies constipation, Denies diarrhea and Denies vomiting Denies dysuria, Denies urinary frequency and Denies urinary urgency Musc Denies arthralgias, Denies joint swelling, Denies numbness and Denies tingling Neuro Denies Abnormal speech present, Denies behavioral changes, Denies vertigo, Denies dizziness, Denies headache(s), Denies loss of vision, Denies memory loss, Denies numbness and Denies tingling Psych Denies anxiety, Denies behavioral changes, Denies depression, Denies memory loss and Denies panic attacks Jayy/Lymph Denies easy bleeding and Denies easy bruising Aller/Immun Denies wheezing Physical exam (Primary Care) Vital Signs: Last Vital Signs Pulse 80 05/14/24 11:07 BP 144/96 H 05/14/24 11:07 Pulse Ox 98 05/14/24 11:07 Oxygen Delivery Method Room Air 05/14/24 11:07 BMI result Body Mass Index 43.5 Tobacco/Smoking Status: Tobacco use Status Tobacco use date assessed 05/14/24 05/14/24 11:13 Patient Tobacco Use Status Never used Tobacco 05/14/24 11:13 e-Cigarette/Vaping Use Never Used 05/14/24 11:13 PHQ-9: PHQ-9 Score PHQ-9: Total score 0 05/14/24 11:42 Depression Screening Interpretation: Negative Thrive Assessment: Date of Thrive Assessment Date Thrive assessed 05/14/24 05/14/24 11:13 Currently or been in a relationship where the following occur: No concerns reported Const General: healthy appearing, no acute distress, alert and awake Nutritional Appearance: well nourished Orientation/consciousness: oriented to person, oriented to place and oriented to time HENMT Ears: TM's normal bilaterally General nose exam: Normal nasal mucous membranes and turbinates present Eyes Conjunctivae: conjunctivae normal Sclerae: sclerae normal Pupils: Equal, round and reactive pupils present Neck Neck: Yes no lymphadenopathy and Yes no JVD Thyroid: Thyroid normal Carotids: no bruits Resp Effort & Inspection: normal respiratory effort and not tachypneic Auscultation: no crackles, no rales, no rhonchi and no wheezes Cardio Rate: regular rate Rhythm: regular rhythm Heart sounds: no murmurs and normal S1 and S2 GI Palpation (GI): Soft to palpation, nontender, no hepatomegaly and no splenomegaly Auscultation: normal bowel sounds Skin General skin exam: no rashes or lesions noted and dry skin Neuro General: oriented to person, oriented to place and oriented to time Cranial nerves: Yes Equal, round and reactive pupils present Speech: No Abnormal speech present Gait exam (Neuro): Normal gait present Motor exam (neuro): no tremor noted Extrem Right upper extremity: full ROM Left upper extremity: full ROM Right lower extremity: full ROM; no edema Left lower extremity: full ROM; no edema Psych Mental Status: mental status grossly normal Speech and movement: Normal speech and movement present Affect: normal affect Attitude: cooperative Thought process: Normal thought process present Immunizations Boostrix Tdap 2.5 Lf unit-8 mcg-5 Lf/0.5 mL intramuscular syringe Performing Provider: Neil Morris PA-C Performing Location: [facility] Administered by: GIANCARLO Rodriguez on 05/14/24 11:44 Dose Route Admin Location Dispensed Lot Number Expiration Date [place] Field Evidence Technician 0.5 mL IM Left Deltoid 0.5 mL [id number] 04/28/25 [id number] [place] VIS Given Date VIS Provided VIS Publication Date 05/14/24 Single Vaccine 21 Eligibility Eligibility Date Funding Source Not [facility] Eligible 05/14/24 Private Coding Level of Care Code Est Pt Level 4 (58002) Diagnoses Primary hypertension I10 Hypertension type: primary hypertension Impaired glucose metabolism R73.09 Mixed hyperlipidemia E78.2 Hyperlipidemia type: mixed hyperlipidemia Additional Codes LAUREN-7 Assessment Billing - LAUREN-7 Assessment Tool: LAUREN-7 Assessment 48703 ([id number]) Assessment & Plan Assessment & Plan (1) HTN (hypertension): Code(s): I10 - Essential (primary) hypertension Category: Medical Qualifiers: Hypertension type: primary hypertension Qualified Code(s): I10 - Essential (primary) hypertension Plan: Blood pressure slightly elevated today in office. He is on multiple blood pressure medications at maximal doses. He will continue to monitor his blood pressure work on lifestyle and dietary modifications to reduce his blood pressure. Goal blood pressures to be below 140/90 (2) Impaired glucose metabolism: Code(s): R73.09 - Other abnormal glucose Category: Medical Plan: Patient's most recent fasting blood sugar improved. A1c acceptable. He will continue working on lifestyle and dietary modifications to reduce his fasting blood sugar. (3) HLD (hyperlipidemia): Code(s): E78.5 - Hyperlipidemia, unspecified Category: Medical Qualifiers: Hyperlipidemia type: mixed hyperlipidemia Qualified Code(s): E78.2 - Mixed hyperlipidemia Plan: Recent lipid panel showing excellent control of his total cholesterol and LDL. He continues on atorvastatin 10 mg. Goal LDL to remain below 130 Orders: Orders Microalbumin, Random (w Creat) Today I10 - Essential (primary) hypertension Comprehensive [place]. Panel Fast Today I10 - Essential (primary) hypertension Complete Blood Count no Diff Today I10 - Essential (primary) hypertension TDaP Immunization Today Z23 - Encounter for immunization Lipid Panel Today E78.2 - Mixed hyperlipidemia Medications: Refilled atorvastatin 10 mg PO DAILY 90 tabs 1RF 90 days I10 - Essential (primary) hypertension labetalol Take 2 tabs in the AM and 2 tabs in the PM 200 mg (2 x 100 mg) PO BID 360 tabs 1RF 90 days I10 - Essential (primary) hypertension valsartan 80 mg PO DAILY 90 tabs 1RF 90 days I10 - Essential (primary) hypertension clonazepam 1 mg PO BEDTIME 30 tabs 3RF 30 days F41.1 - Generalized anxiety disorder amlodipine 10 mg PO DAILY 90 tabs 1RF 90 days I10 - Essential (primary) hypertension sertraline 100 mg PO DAILY 90 tabs 1RF 90 days F41.1 - Generalized anxiety disorder spironolacton-hydrochlorothiaz 25-25 mg 1 tab PO DAILY 90 tabs 1RF 90 days I10 - Essential (primary) hypertension Patient Instructions: Goal: LDL to remain below 130, goal blood pressures to be below 140/90 Barrier: Adherence to physical activity and healthy eating habits
== END 2024-05-14 11:45 | disposition home or self-care (01) ==
PROVIDERS: PCP Physician Assistant; Visit Provider Physician Assistant
DX: I10 Essential (primary) hypertension (principal); R73.09 Other abnormal glucose; E78.2 Mixed hyperlipidemia; Z23 Encounter for immunization

== ENCOUNTER → 2024-05-14 10:54 | Outpatient (BNVA) | payer OTHER, SELFPAY | PROVIDERS: PCP Physician Assistant; Visit Provider Physician Assistant | DX: I10 Essential (primary) hypertension (principal); R73.09 Other abnormal glucose; E78.2 Mixed hyperlipidemia; Z79.899 Other long term (current) drug therapy; Z23 Encounter for immunization | CPT/HCPCS: 90471; 90715; 96127 ==

== ENCOUNTER 2024-11-03 08:25 | Outpatient (REF) | payer OTHER, SELFPAY ==
--- OUTSIDE RECORDS SUMMARY | 2024-11-03 08:27 | XMS_ITS | Patient Health Record ---
Author Organization [facility] Address [address] [place] [address] Care Team Providers Care Coupon Redemption Clerk Name Role Phone CELESTE RESENDEZ Primary Care Provider Slava Tilley [phone] Allergies No Known Allergies Reason For Referral No Information Medications Medication SIG (Take, Route, Frequency, Duration) Notes Start Date End Date Status Valsartan 80 MG Oral for 90 Ac tive amLODIPine Besylate 10 MG Oral for 30 Active Atorvastatin Calcium 10 MG TAKE 1 TABLET BY MOUTH EVERY DAY Oral for 90 Active Spironolactone-HCTZ 25-25 MG Oral for 30 Active Sertraline HCl 100 MG Oral for 30 Active Labetalol HCl 100 MG Oral for 30 Active clonazePAM 1 MG Oral for 30 Ac tive Immunizations Vaccine Route Administration Date Status Comme nts Influenza Unknown 04/01/2022 Administered Social History Tobacco Use: Social History Observation Description Date Details (start date - stop date) Never Smoker NA - NA Tobacco Use/Smoking Question Answer Notes Patient is a nonsmoker Alcohol Screen Question Answer Notes Did you have a drink containing alcohol in the p ast year? No Points 0 Interpretation Negative Section Notes: Nonsmoker; no significant al cohol Problems Problem Type SNOMED Code ICD Code Onset Dates Problem Status W/U Status Risk Notes Problem [id number] Colon cancer screening (Z12.11) Active confirmed Problem [id number] Preprocedural examination (Z01.818) Active confirmed Plan Of Treatment No Information Insurance Providers Payer Name Payer Address Payer Phone Subscriber Number Group Number Insured Name Patient Relationship to Insured Coverage Start Date Coverage End Date [employer] [address] [place] [phone] [id number] FLORENCE MCPHERSON Self - patient is the insured Medical (General) History Medical History History ICD Code Seasonal allergies Hypertension Depression/Anxiety Denies NH,DM,CVA,Lung disease,renal dise ase Surgical History Surgery Date(Month/Year) [place] teeth extraction
--- OUTSIDE RECORDS SUMMARY | 2024-11-03 08:27 | XMS_ITS | Clinical Summary ---
Author Organization [facility] Address [address] [place] [address] Care Team Providers Care Real Estate Operations Manager Name Role Phone Unavailable Primary Care Provider Unavailabl e Allergies No known active allergies Medications Medication Sig Dispensed Refills Start Date End Date Status spironolactone-hydroc hlorothiazide (ALDACTAZIDE) 25-25 MG per tabletIndications:Ess ential hypertension Take 1 tablet by mouth daily. 90 tablet 1 05/17/2023 Active valsartan (DIOVAN) tablet 80 mgIndications:Essenti al hypertension Take 1 tablet (80 mg total) by mouth daily. 90 tablet 1 05/17/2023 Active sertraline (ZOLOFT) 100 MG tabletIndications:Anx iety Take 1 tablet (100 mg total) by mouth daily. 90 tablet 1 05/17/2023 Active labetalol (NORMODYNE) 100 MG tabletIndications:Ess ential hypertension Take 2 tablets (200 mg total) by mouth 2 (two) times a day. 360 tablet 1 05/17/2023 Active amLODIPine (NORVASC) tablet 10 mgIndications:Essenti al hypertension Take 1 tablet (10 mg total) by mouth daily. 90 tablet 1 05/17/2023 Active atorvastatin (LIPITOR) tablet 10 mgIndications:Hyperch olesterolemia Take 1 tablet (10 mg total) by mouth daily. 90 tablet 1 05/17/2023 Active clonazePAM (KlonoPIN) 1 MG tabletIndications:Anx iety TAKE 1/2 TAB TWICE DAILY NEEDED 28 tablet 0 07/05/2023 Active Active Problems Problem Noted Date Diagnosed Date Colon cancer screening 11/03/2022 Gastroesophageal reflux disease without esophagi tis 04/20/2019 Hypercholesterolemia 05/03/2018 Essential hypertension 05/03/2018 Anxiety state 05/03/2018 Resolved Problems Problem Noted Date Diagnosed Date Resolved Date Preprocedural examination 11/03/2022 Immunizations Name Administration Dates Next Due Adacel (Tdap) 07/09/2020 Covid-19 (Pfizer 12+) Bivalent 05/03/2022 Covid-19 (Pfizer) Ready To Use 12/19/2021 Influenza Quad (Flucelvax) 0.5mL >6mon (ccIIV4) 05/03/2022 Influenza Trivalent (Fluzone /Afluria) 5.0mL Multi-dose Vial 04/01/2022 Family History Medical History Relation Name Comments Cancer Father Depression Father Hyperlipidemia Father Hypertension Father No Sig Med Hx Mother Relation Name Status Comments Brother Unknown Alive Father Alive Maternal Grandfather Maternal Grandmother Mother Alive Paternal Grandfather Paternal Grandmother Sister Unknown Alive Social History Tobacco Use Types Packs/Day Years Used Date Smoking Tobacco: Never Smokeless Tobacco: Never Tobacco Cessation:Counseling Given: Not Answered Alcohol Use Standard Drinks/Week Comments Yes 0 (1 standard drink = 0.6 oz pur e alcohol) Rarely Sex and Gender Information Value Date Recorded Sex Assigned at Not on file Gender Identity Not on file Sexual Orientation Not on file Job Start Date Occupation Industry Not on file Not on file Not on file Last Filed Vital Signs Vital Sign Reading Time Taken Comments Blood Pressure 124/84 04/21/2023 8:55 AM EDT Pulse 84 04/21/2023 8:55 AM EDT Temperature 36.4 ??C (97.5 ??F) 04/21/2023 8:55 AM ED T Respiratory Rate 20 11/18/2021 8:35 AM EDT Oxygen Saturation 96% 04/21/2023 8:55 AM EDT Inhaled Oxygen Concentration - - Weight 141 kg (310 lb 12.8 oz) 04/21/2023 8:55 A M EDT Height 182.9 cm (6') 04/20/2022 8:29 AM EDT Body Mass Index 42.15 04/20/2022 8:29 AM EDT Plan of Treatment Health Maintenance Due Date Last Done Comments Hepatitis B Vaccines (1 of 3 - 3-dose series) 1975 Preventative Health Evaluation 01/27/1994 Colon Cancer Screening (Colonoscopy) 01/27/2021 Depression Screening 11/04/2023 11/03/2022 COVID-19 Vaccine ( season) 2024 05/04/2023, 05/03/2022, 12/19/2021 Influenza Vaccine (#1) 2024 3, 05/03/2022, 04/01/2022, Additional history exists BMI Counseling 04/21/2024 04/21/2023, 11/29, 11/03/2022, Additional history exists DTap / Tdap / Td (2 - Td or Tdap) 07/09/2030 07/09/2020 Hepatitis C Screening Discontinued Pneumococcal Vaccine Aged Out No long er eligible based on patient's age to complete this topic RSV Ped < 20 months Aged Out No longe r eligible based on patient's age to complete this topic
[2024-11-03 09:40] LABS: Hematocrit 43.3 % (42.0-52.0); Hemoglobin 15.3 g/dl (14.0-18.0); Mean Corpuscular HGB Conc 35.3 g/dl (31.0-36.0); Mean Corpuscular Hemoglobin 29.4 pg (27.0-33.0); Mean Corpuscular Volume 83.3 fL (80.0-98.0); Mean Platelet Volume 10.5 fL (9.4-12.4); Platelet Count 210 X10*3/uL (160-400); Red Cell Distribution Width 12.6 % (11.0-16.0)
[2024-11-03 10:06] LABS: Albumin Level 4.7 g/dL (3.5-5.0); Alkaline Phosphatase 61 U/L (39-117); Anion Gap 11 (12-20); Aspartate Amino Transferase 37 U/L (5-37); Bilirubin Total 0.9 mg/dL (0.0-1.0); Blood Urea Nitrogen 15 mg/dL (9-16); Calcium 9.4 mg/dL (8.4-10.2); Carbon Dioxide 30 mmol/L (22-29); Chloride 106 mmol/L (96-108); Cholesterol 177 mg/dL (<200); Estimated Glomerular Filt Rate > 60; Glucose Fasting 105 mg/dL (60-99); HDL Cholesterol 36 mg/dL (>40); LDL Cholesterol Calculated 114 mg/dL (<100); Potassium 3.6 mmol/L (3.3-5.1); Sodium 143 mmol/L (135-145); Total Protein 7.3 g/dL (6.5-8.0); Triglycerides 138 mg/dL (<150)
[2024-11-03 10:18] LABS: Alanine Aminotransferase 58 U/L (0-40)
[2024-11-03 11:23] LABS: Creatinine Urine 199.72 mg/dL
== END 2024-11-03 08:26 | disposition home or self-care (01) ==
LOC: HO.LAB 08:25
PROVIDERS: PCP Physician Assistant; Visit Provider Physician Assistant
DX: I10 Essential (primary) hypertension (principal); E78.2 Mixed hyperlipidemia
CPT/HCPCS: 36415; 80053; 80061; 82043; 82570; 85027

== ENCOUNTER 2024-11-14 11:04 | Outpatient (AMB) | payer OTHER, SELFPAY ==
--- NOTE | 2024-11-14 11:12 | A.OFFPC_ITS ---
Vital Signs 11/14/24 11:18 Height 5 ft 10 in Weight 299 lb 8 oz BMI 43.0 BP 144/86 H Blood Pressure Location Lt brachial Position Sitting Pulse 90 Pulse Source Pulse Oximeter Temp 97.3 F Temp Source Temporal Artery Scan Pulse Oximetry (%) 98 Oxygen Delivery Method Room Air Intake Visit Reasons: ANNUAL Apple Press Operator Required: No Accompanied by: Self / Same As Patient Allergies No Known Allergies Allergy (Unknown, Verified 11/14/24 11:20) Medication List - Last Reconciled 11/14/24 by Neil Morris PA-C amlodipine 10 mg PO DAILY 90 days atorvastatin 10 mg PO DAILY 90 days clonazepam 1 mg PO BEDTIME 30 days dicyclomine 20 mg (2 x 10 mg) PO QID PRN labetalol 200 mg (2 x 100 mg) PO BID 90 days sertraline 100 mg PO DAILY 90 days spironolacton-hydrochlorothiaz 25-25 mg 1 tab PO DAILY 90 days valsartan 80 mg PO DAILY 90 days Tobacco use date assessed: 11/14/24 Dental Screening Dental Screen Date: 11/14/24 Did you have a dental visit in the last 12 months?: Yes Did you have a dental problem in the last 6 months where you did not have access to dental care?: No Was dental information given to patient?: Patient has dentist HPI ANNUAL HPI Details Patient is a 49-year-old male here today for routine annual physical t . Patient has a past medical history significant for obesity, hypertension, anxiety Hypertension: Blood pressure elevated today in office though has improved from previous. He is on several different blood pressure medications at this time. He otherwise denies any chest pain, shortness for breath, vision issues. He does not regularly monitor blood pressure at home and will start doing so. PLAN: Will increase his valsartan dose to 160 mg daily for better blood pressure control will also check his kidneys to evaluate for renal artery stenosis as he is on several different antihypertensive medications . .. Anxiety: Continues on high-dose SSRI therapy and daily use of clonazepam 1 mg. We did have a long discussion about benzodiazepine dependency any does agree and understand he is likely dependent on benzodiazepine. Advised to start trying to use clonazepam on an as-needed [id number] basis to try to reduce his overall dosing of benzodiazepine any agrees and understands. .. Hyperlipidemia: Recent fasting lipid panel showing appropriate total cholesterol and LDL. Continues on ator 10mg with good effect. Vaccines: Up-to-date with COVID vaccine, flu vaccine, needs tetanus vaccine- consider colon Cancer screen: Father diagnosed with colon cancer at age 35. Patient willing to do colonoscopy. Laboratory Tests 11/05/23 05/11/24 11/03/24 09:05 08:44 08:36 RBC Creatinine Fasting Glucose 108 H ALT 53 H 51 H Cholesterol 174 LDL Cholesterol, C alc 108 H Urine Microalbumin 20.0 11/03/24 08:37 RBC 5.20 Creatinine 0.83 Fasting Glucose 105 H ALT 58 H Cholesterol 177 LDL Cholesterol, C alc 114 H Urine Microalbumin PFSH Family History (Updated 11/14/24 @ 11:25 by Neil Morris PA-C) Father Colon cancer, Onset Age: 35 Prostate cancer Social History (Updated 11/14/24 @ 11:26 by Neil Morris PA-C) Housing: Apartment Alcohol intake: current Alcohol intake frequency: holidays/special occasions only Patient Tobacco Use Status: Never used Tobacco e-Cigarette/Vaping Use: Never Used service: No Current occupational status: employed 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 1. Little interest or pleasure in doing things: not at all 2. Feeling down, depressed, or hopeless: not at all 3. Trouble falling or staying asleep, or sleeping too much: not at all 4. Feeling tired or having little energy: not at all 5. Poor appetite or overeating: not at all 6. Feeling bad about yourself - or that you are a failure or have let yourself or your family down: not at all 7. Trouble concentrating on things, such as reading the newspaper or watching television: not at all 8. Moving or speaking so slowly that other people could have noticed. Or the op posite - being so fidgety or restless that you have been moving around a lot more than usual: not at all 9. Thoughts that you would be better off or of hurting yourself in some way: not at all Total score: 0 Depression Screening Interpretation: Negative Depression Screening Done: Yes 61792 - PHQ-9 Billing: Yes Source: Developed by Drs. Slava Griffin, Gretchen Prado, Mervin Lockhart and colleagues, with an educational chase from [employer]. Thrive Questionnaire Date Thrive assessed: 11/14/24 I am a: Patient What is your living situation today?: I have a steady place to live Within the past 12 months, did the food you bought not last and you didn't have the money to get more?: Never true Within the past 12 months, did you worry whether your food would run out before you got money to buy more?: Never true Do you have trouble paying for medicines?: No Do you have trouble getting transportation to medical appointments?: No Do you have trouble paying your heating and electricity bill?: No Do you have trouble taking care of your child, family member or friend?: No Do you have trouble with day-to-day activities such as bathing, preparing meals, shopping, managing finances, etc.?: No Are you currently unemployed and looking for a job?: No Are you interested in more education?: No Please select the resources that you would like help with: None Currently or been in a relationship where the following occur: No concerns reported THRIVE Score: 0 AUDIT C Alcohol Use Questionnaire (AUDIT-C) 1. How often do you have a drink containing alcohol?: Monthly or less 2. How many drinks containing alcohol do you have on a typical day when you are drinking?: 1 or 2 3. How often do you have six or more drinks on one occasion?: Never Total Score: 1 LAUREN-7 AMB Questionnaire LAUREN-7 Date LAUREN - 7 assessed: 11/14/24 Feeling nervous, anxious, or on edge: 0 = Not at all Not being able to stop or control worryin = Not at all Worrying too much about different things: 0 = Not at all Trouble relaxin = Not at all Being so restless that it is hard to sit still: 0 = Not at all Becoming easily annoyed or irritable: 0 = Not at all Feeling afraid as if something awful might happen: 0 = Not at all Total LAUREN-7 score (0-4 normal; 5-9 mild; 10-14 moderate; 15-21 severe): 0 Source: Developed by Gretchen Coburn, Mervin Lockhart and colleagues, with an educational chase from [employer] LAUREN-7 Assessment Billing LAUREN-7 Assessment Tool: LAUREN-7 Assessment [id number] Review of Systems Const Denies body aches, Denies chills, Denies excessive sweating, Denies fatigue, Denies fever(s) and Denies headache(s) Eyes Denies blurry vision ENT Denies dysphagia, Denies vertigo, Denies dizziness, Denies headache(s), Denies hearing loss and Denies tinnitus Card Denies chest pain, Denies chest pain with activity, Denies syncope, Denies irregular heart rhythm and Denies dyspnea Resp Denies chest congestion, Denies cough, Denies hemoptysis, Denies dyspnea and Denies wheezing GI Denies abdominal pain, Denies melena, Denies hematochezia, Denies coffee ground emesis, Denies dysphagia, Denies diarrhea, Denies nausea and Denies vomiting Denies difficulty urinating, Denies dysuria, Denies urinary frequency, Denies urinary hesitancy and Denies urinary urgency Musc Denies arthralgias, Denies limited range of motion, Denies muscle cramps and Denies muscle weakness Skin/Breast Denies rash and Denies skin ulcer Neuro Denies Abnormal speech present, Denies confusion, Denies vertigo, Denies dizziness, Denies syncope, Denies headache(s), Denies memory loss and Denies seizure-like activity Psych Denies anxiety, Denies confusion, Denies depression, Denies memory loss, Denies panic attacks and Denies paranoia Endo Denies excessive sweating, Denies fatigue, Denies flushing, Denies polydipsia and Denies polyuria Aller/Immun Denies wheezing Physical exam (Primary Care) Vital Signs: Last Vital Signs Temp 97.3 F 11/14/24 11:18 Pulse 90 11/14/24 11:18 BP 144/86 H 11/14/24 11:18 Pulse Ox 98 11/14/24 11:18 Oxygen Delivery Method Room Air 11/14/24 11:18 BMI result Body Mass Index 43.0 BMI Assessment/Plan discussion: High BMI High, discussed plan: lifestyle, weight reduction, dietary and physical activity Tobacco/Smoking Status: Tobacco use Status Tobacco use date assessed 05/14/24 11/14/24 11:12 Patient Tobacco Use Status Never used Tobacco 11/14/24 11:12 e-Cigarette/Vaping Use Never Used 11/14/24 11:12 PHQ-9: PHQ-9 Score PHQ-9: Total score 0 11/14/24 11:18 Depression Screening Interpretation: Negative Thrive Assessment: Date of Thrive Assessment Date Thrive assessed 11/14/24 11/14/24 11:12 Currently or been in a relationship where the following occur: No concerns reported Const General: cooperative, comfortable, no acute distress, alert and awake; No confusion Orientation/consciousness: oriented to person, oriented to place, patient oriented x3 and No confusion HENMT Head: Yes normocephalic Ears: external ears normal and TM's normal bilaterally Face and sinus: No sinus tenderness Mouth: Normal oral and palatal mucosa present and tongue normal Teeth and gingiva: dentition normal and gingiva normal Throat: Yes posterior oropharynx normal, Yes tonsils normal and Yes uvula midline Eyes Conjunctivae: conjunctivae normal Sclerae: sclerae normal Pupils: Equal, round and reactive pupils present EOM: EOMs intact bilaterally Direct Ophthalmoscopy: No no photophobia Neck Neck: Yes no lymphadenopathy, No tender and Yes no JVD Thyroid: Thyroid normal Carotids: no bruits Chest Chest palpation & inspection: no tenderness Resp Effort & Inspection: normal respiratory effort, no audible wheezes, not labored and no stridor Auscultation: no crackles, no rales, no rhonchi and no wheezes Cardio Jugular venous distension: no JVD Rate: regular rate, not bradycardic and not tachycardic Rhythm: regular rhythm Bruits: no carotid bruits Peripheral pulses: Peripheral pulses 2+ throughout GI Inspection: Yes normal to inspection, No abdominal wall ecchymosis and No visible herniation Palpation (GI): Soft to palpation, nontender, no guarding, not rigid and No hepatosplenomegaly present Auscultation: normoactive bowel sounds General: Yes no CVA tenderness Back/Spine/Pelvis Back: no CVA tenderness and No back tenderness Cervical Spine: cervical ROM normal Thoracic/Lumbar Spine: thoracic and lumbar spine normal to inspection, straight leg raise negative bilaterally, No thoraco-lumbar ROM limited and No lumbar spinal tenderness Skin Lesions: no lesions Rashes: no rashes Wounds: no wounds Neuro General: oriented to person, oriented to place, patient oriented x3, CN's II-XI intact bilaterally and No confusion Cranial nerves: Yes Equal, round and reactive pupils present and Yes Normal accommodation reflex present Cognition (Neuro): normal cognition Speech: No Abnormal speech present Gait exam (Neuro): Normal gait present Motor exam (neuro): 5/5 motor strength present throughout Extrem Right upper extremity: full ROM; no cyanosis Left upper extremity: full ROM; no cyanosis Right lower extremity: no edema Left lower extremity: no edema Psych Appearance: grossly normal Mental Status: mental status grossly normal Affect: normal affect Attitude: cooperative Thought process: Normal thought process present Coding Level of Care Code Est Pt Prev Care 40-64y(66524) Diagnoses Annual physical exam Z00.00 Primary hypertension I10 Hypertension type: primary hypertension Impaired glucose metabolism R73.09 Mixed hyperlipidemia E78.2 Hyperlipidemia type: mixed hyperlipidemia Need for MMR vaccine Z23 Family history of colon cancer Z80.0 Class 3 obesity E66.813 Additional Codes LAUREN-7 Assessment Billing - LAUREN-7 Assessment Tool: LAUREN-7 Assessment [id number] ([id number]) PHQ-9 - 92805 - PHQ-9 Billing: Yes ([id number]) Assessment & Plan Assessment & Plan (1) Annual physical exam: Code(s): Z00.00 - Encounter for general adult medical examination without abnormal findings Category: Medical Plan: As per HPI (2) HTN (hypertension): Code(s): I10 - Essential (primary) hypertension Category: Medical Qualifiers: Hypertension type: primary hypertension Qualified Code(s): I10 - Essential (primary) hypertension Plan: Blood pressure slightly elevated today in office. He is on multiple blood pressure medications at maximal doses. Will send for renal ultrasound to evaluate for renal artery stenosis as he is on 5 different antihypertensives and blood pressures remain elevated. Will increase his dose of valsartan 260 mg daily.. Goal blood pressures to be below 140/90 (3) Impaired glucose metabolism: Code(s): R73.09 - Other abnormal glucose Category: Medical Plan: Patient's most recent fasting blood sugar improved. A1c acceptable. He will continue working on lifestyle and dietary modifications to reduce his fasting blood sugar. (4) HLD (hyperlipidemia): Code(s): E78.5 - Hyperlipidemia, unspecified Category: Medical Qualifiers: Hyperlipidemia type: mixed hyperlipidemia Qualified Code(s): E78.2 - Mixed hyperlipidemia Plan: Recent lipid panel showing excellent control of his total cholesterol and LDL. He continues on atorvastatin 10 mg. Goal LDL to remain below 130 (5) Need for MMR vaccine: Code(s): Z23 - Encounter for immunization Category: Medical Plan: Patient interested in his antibodies to measles due to current outbreaks happening in the [place]. (6) Family history of colon cancer: Code(s): Z80.0 - Family history of malignant neoplasm of digestive organs Category: Medical Plan: Patient has a family history of colon cancer, he is willing to do colonoscopy. Father had colon cancer at age 35 (7) Class 3 obesity: Code(s): E66.813 - Obesity, class 3 Category: Medical Plan: Patient does understand his BMI is over 40 and will work on being more physically active and adapting to better eating habits to reduce his weight Orders: Orders US renal BI Today I10 - Essential (primary) hypertension Complete Blood Count no Diff Today I10 - Essential (primary) hypertension MMR IgG Measles Mumps Rubella Today Z23 - Encounter for immunization US renal doppler Today I10 - Essential (primary) hypertension Comprehensive [place]. Panel Fast Today I10 - Essential (primary) hypertension Lipid Panel Today E78.2 - Mixed hyperlipidemia Hemoglobin A1c Today R73.09 - Other abnormal glucose Referrals Gastroenterology Referral Z80.0 - Family history of malignant neoplasm of dige stive organs Medications: New valsartan 160 mg PO DAILY 90 days 90 tabs 1RF I10 - Essential (primary) hypertension Discontinued valsartan Discontinued Reason: Doctor's Order 80 mg PO DAILY 90 days 90 tabs 1RF I10 - Essential (primary) hypertension Patient Instructions: Goal: Blood pressure to be below 140/90 Barriers: Adherence to physical activity and healthy eating habits
[2024-11-14 11:18] VITALS: BP 144/86; PULSE 90; TEMP 36.3; O2SAT 98; BMI 43.0
--- OUTSIDE RECORDS SUMMARY | 2024-11-14 13:18 | XMS_ITS | Clinical Summary ---
Author Organization [facility] Address [address] [place] [address] Care Team Providers Care Stator Tester Name Role Phone Unavailable Primary Care Provider [...]
--- OUTSIDE RECORDS SUMMARY | 2024-11-14 13:18 | XMS_ITS | Patient Health Record ---
Author Organization [facility] Address [address] [place] [address] Care Team Providers Care Film Sound Engineer Name Role Phone CELESTE RESENDEZ Primary Care Provider Slava Tilley [phone] Allergies No Known Allergies Reason For Referral [...] Problem Status W/U Status Risk Notes Problem [id number] Colon cancer screening (Z12.11) Active confirmed Problem [id number] Preprocedural examination (Z01.818) Active confirmed Plan Of Treatment No Information Insurance Providers Payer Name Payer Address Payer Phone Subscriber Number Group Number Insured Name Patient Relationship to Insured Coverage Start Date Coverage End Date [employer] [address] [place] [phone] [id number] FLORENCE MCPHERSON Self - patient is the insured Medical (General) History Medical History History ICD Code Seasonal allergies Hypertension Depression/Anxiety Denies [place],DM,CVA,Lung disease,renal dise ase Surgical History Surgery Date(Month/Year) [place] teeth extraction
== END 2024-11-14 11:43 | disposition home or self-care (01) ==
LOC: HO.HMCH 11:05
PROVIDERS: PCP Physician Assistant; Visit Provider Physician Assistant
DX: Z00.00 Encounter for general adult medical examination without abnormal findings (principal); I10 Essential (primary) hypertension; E66.813 Obesity, class 3; Z68.41 Body mass index [BMI] 40.0-44.9, adult; R73.09 Other abnormal glucose; E78.2 Mixed hyperlipidemia; Z23 Encounter for immunization; Z80.0 Family history of malignant neoplasm of digestive organs

== ENCOUNTER → 2024-11-14 11:04 | Outpatient (BNVA) | payer OTHER, SELFPAY | PROVIDERS: PCP Physician Assistant; Visit Provider Physician Assistant | DX: Z00.00 Encounter for general adult medical examination without abnormal findings (principal); I10 Essential (primary) hypertension; R73.09 Other abnormal glucose; E78.2 Mixed hyperlipidemia; E66.813 Obesity, class 3; Z68.41 Body mass index [BMI] 40.0-44.9, adult; F41.9 Anxiety disorder, unspecified; Z80.0 Family history of malignant neoplasm of digestive organs | CPT/HCPCS: 96127 ==

== ENCOUNTER 2024-11-22 10:00 | Outpatient (AMB) | payer OTHER, SELFPAY ==
--- NOTE | 2024-11-22 10:03 | MHC.OFFWIV ---
Intake Vital Signs 11/22/24 10:06 Weight 304 lb BP 140/94 H Blood Pressure Location Rt brachial Position Sitting Pulse 81 Pulse Source Pulse Oximeter Pulse Oximetry (%) 97 Oxygen Delivery Method Room Air Intake Visit Reasons: EP-lt side lower back pain Intake Note: Patient here for severe back pain that started a couple of days ago. He states he did slip down some stairs and caught himself but did not actually land on the floor. Patient Tobacco Use Status: Never used Tobacco Allergies No Known Allergies Allergy (Unknown, Verified 11/22/24 10:07) Do you need a note to return to daycare/school/sports/work: No HPI HPI Comments History of Present Illness Details 49 y/o Male Patient who presents to the walk in clinic with c/o severe back pain that started this past Tuesday. States he did slip down some stairs and caught himself but did not actually land on the floor. He also Volunteered at [employer] Tuesday - He did walk. He has been using Advil, Heat/Ice and BioFreeze with minimal relief. 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 [employer] Cognitive needs: No Hearing needs: No Vision needs: No Review of Systems Const All systems reviewed & are unremarkable except as noted in HPI and below Physical Exam Vital Signs: Last Vital Signs Pulse 81 11/22/24 10:06 BP 140/94 H 11/22/24 10:06 Pulse Ox 97 11/22/24 10:06 Oxygen Delivery Method Room Air 11/22/24 10:06 Const General: no acute distress; No comfortable Nutritional Appearance: obese morbidly obese Orientation/consciousness: patient oriented x3 Back/Spine/Pelvis Back: back tenderness Thoracic/Lumbar Spine: pain with thoraco-lumbar ROM, paraspinal muscle tenderness, thoraco-lumbar spasm, thoracic spinal tenderness and lumbar spinal tenderness at L4 and at L5 Neuro General: patient oriented x3, gait normal and moves all extremities Psych Speech and movement: Normal speech and movement present Assessment & Plan Assessment & Plan (1) Lumbar strain: Code(s): S39.012A - Strain of muscle, fascia and tendon of lower back, initial encounter Qualifiers: Encounter type: initial encounter Qualified Code(s): S39.012A - Strain of muscle, fascia and tendon of lower back, initial encounter Plan: Ordered Lumbar Xray Ordered PT Ordered Muscle relaxants. NSAIDS and Acetaminophen for pain relief. Orders: Orders XR lumbar spine 2-3V Today S39.012A - Strain of muscle, fascia and tendon of lower back, initial encounter Medications: New ibuprofen 800 mg PO Q8H 20 tabs 0RF Back Pain S39.012A - Strain of muscle, fascia and tendon of lower back, initial encounter cyclobenzaprine 10 mg PO BEDTIME 14 tabs 0RF S39.012A - Strain of muscle, fascia and tendon of lower back, initial encounter Coding Level of Care Code Est Pt Level 4 (57055) Diagnoses Strain of lumbar region, initial encounter S39.012A Encounter type: initial encounter Time Spent (min) 20
[2024-11-22 10:06] VITALS: BP 140/94; PULSE 81; O2SAT 97
--- OUTSIDE RECORDS SUMMARY | 2024-11-22 11:24 | XMS_ITS | Patient Health Record ---
Author Organization [facility] Address [address] [place] [address] Care Team Providers Care Hoop Bender Tank Name Role Phone CELESTE RESENDEZ Primary Care Provider Slava Tilley [phone] Allergies No Known Allergies Reason For Referral [...] Problem Status W/U Status Risk Notes Problem [id number] Colon cancer screening (Z12.11) Active confirmed Problem [id number] Preprocedural examination (Z01.818) Active confirmed Plan Of Treatment No Information Insurance Providers Payer Name Payer Address Payer Phone Subscriber Number Group Number Insured Name Patient Relationship to Insured Coverage Start Date Coverage End Date [employer] [address] [place] [phone] [id number] FLORENCE MCPHERSON Self - patient is the insured Medical (General) History Medical History History ICD Code Seasonal allergies Hypertension Depression/Anxiety Denies [place],DM,CVA,Lung disease,renal dise ase Surgical History Surgery Date(Month/Year) [place] teeth extraction
--- OUTSIDE RECORDS SUMMARY | 2024-11-22 11:24 | XMS_ITS | Clinical Summary ---
Author Organization [facility] Address [address] [place] [address] Care Team Providers Care Oil Expert Name Role Phone Unavailable Primary Care Provider [...]
== END 2024-11-22 10:36 | disposition home or self-care (01) ==
PROVIDERS: PCP Physician Assistant; Visit Provider Nurse Practitioner Family
DX: S39.012A Strain of muscle, fascia and tendon of lower back, initial encounter (principal)

== ENCOUNTER 2024-11-22 10:00 | Outpatient (REF) | payer OTHER, SELFPAY ==
--- NOTE | ~2024-11-22 | XR_ITS ---
EXAMINATION: XR LUMBOSACRAL SPINE CLINICAL INFORMATION: S39.012A - Strain of muscle, fascia and tendon of lower back, initial en... COMPARISON: None available. TECHNIQUE: Three views of the lumbosacral spine. FINDINGS: Multilevel syndesmophyte formation and marginal osteophyte formation lower thoracic upper lumbar spine. Hypertrophy of the facet joints at L5-S1. Mild endplate sclerosis at multiple levels. No gross acute cortical disruption. Grade 1 retrolisthesis L3-4. XR/XR lumbar spine 2-3V IMPRESSION: Multilevel thoracolumbar spondylosis resulting in grade 1 retrolisthesis L3-4. Electronically signed by: Franky Pierre MD 11/22/2024 11:23 AM EDT
--- OUTSIDE RECORDS SUMMARY | 2024-11-22 12:06 | XMS_ITS | Clinical Summary ---
Author Organization [facility] Address [address] [place] [address] Care Team Providers Care Laboratory Chemist Name Role Phone Unavailable Primary Care Provider [...]
== END 2024-11-22 10:01 | disposition home or self-care (01) ==
LOC: HO.HMGCX 10:00
PROVIDERS: PCP Physician Assistant; Visit Provider Nurse Practitioner Family
DX: S39.012A Strain of muscle, fascia and tendon of lower back, initial encounter (principal)
CPT/HCPCS: 72100

== ENCOUNTER → 2024-11-22 10:32 | Outpatient (BNV) | payer OTHER, SELFPAY | PROVIDERS: PCP Physician Assistant; Visit Provider Radiology Diagnostic Radiology | DX: M47.895 Other spondylosis, thoracolumbar region (principal) | CPT/HCPCS: 72100 ==

== ENCOUNTER 2025-05-13 09:40 | Outpatient (REF) | payer OTHER, SELFPAY ==
--- OUTSIDE RECORDS SUMMARY | 2025-05-13 09:49 | XMS_ITS | Clinical Summary ---
Author Organization [facility] Address [address] [place] [address] Care Team Providers Care Streaming Media Specialist Name Role Phone Unavailable Primary Care Provider [...] 84 04/21/2023 8:55 AM EDT Temperature 36.4 C (97.5 F) 04/21/2023 8:55 AM EDT Respiratory Rate 20 11/18/2021 8:35 AM EDT [...] Screening (Colonoscopy) 01/27/2021 Depression Screening 11/04/2023 11/03/2022 BMI Counseling 04/21/2024 04/21/2023, 11/29, 11/03/2022, Additional history exists COVID-19 Vaccine ( season) 2025 05/04/2023, 05/03/2022, 12/19/2021 Influenza Vaccine (#1) 2025 3, 05/03/2022, 04/01/2022, Additional history exists DTap / Tdap / Td (2 - Td or Tdap) 07/09/2030 07/09/2020 Hepatitis C Screening Discontinued Pneumococcal Vaccine Aged Out No long er eligible based on patient's age to complete this topic RSV Ped < 20 months Aged Out No longe r eligible based on patient's age to complete this topic
--- OUTSIDE RECORDS SUMMARY | 2025-05-13 09:49 | XMS_ITS | Clinical Summary ---
Author Organization [facility] Address [address] [phone] Phone Care Team Providers Care Drywaller Name Role Phone Neil Morris Primary Care Provider + Allergies No known active allergies Medications amLODIPine (NORVASC) 10 MG tablet 09/06/2022 Active atorvastatin (LIPITOR) 10 MG tablet Take 1 tablet by mouth daily. 04/23/2022 Active clonazePAM (KLONOPIN) 1 MG tablet 09/13/2022 Active labetaloL (TRANDATE) 100 MG tablet 07/21/2022 Active spironolactone-h ydroCHLOROthiazi de (ALDACTAZIDE) 25-25 mg per tablet 08/09/2022 Active valsartan (DIOVAN) 80 MG tablet 09/08/2022 Active Active Problems Problem Noted Date Diagnosed Date Gastroesophageal reflux disease without esophagi tis 04/20/2019 Anxiety state 05/03/2018 Essential hypertension 05/03/2018 Hypercholesterolemia 05/03/2018 Social History Tobacco Use Types Packs/Day Years Used Date Smoking Tobacco: Never Smokeless Tobacco: Never Tobacco Cessation:Counseling Given: Not Answered Education Answer Date Recorded Are you interested in more education? Not on dayday e 11/27/2022 Are you concerned about learning? Not on file 11/27/2022 No 11/27/2022 No 11/27/2022 Digital Access Answer Date Recorded No 12/28/2022 No 12/28/2022 Reliable internet access at home? Not on file 12/28/2022 Device with a working camera? Not on file Sex and Gender Information Value Date Recorded Sex Assigned at Not on file Legal Sex Male 8:15 AM EST Gender Identity Not on file Sexual Orientation Not on file Last Filed Vital Signs Vital Sign Reading Time Taken Comments Blood Pressure 120/80 09/27/2022 8:36 AM EST Pulse 74 09/27/2022 8:36 AM EST Temperature 36.9 C (98.5 F) 09/27/2022 8:36 AM EST Respiratory Rate 20 09/27/2022 8:36 AM EST Oxygen Saturation 99% 09/27/2022 8:36 AM EST Inhaled Oxygen Concentration - - Weight 136.1 kg (300 lb) 09/27/2022 8:36 AM EST Height 182.9 cm (6') 09/27/2022 8:36 AM EST Body Mass Index 40.69 09/27/2022 8:36 AM EST Plan of Treatment Health Maintenance Due Date Last Done Comments CREATININE LEVEL 1976 LIPID PANEL 1976 POTASSIUM LEVEL 1976 DEPRESSION SCREENING 1988 HEPATITIS C SCREENING 01/27/1994 HIV ONE-TIME SCREENING (18-65 YEARS) 01/27/1994 SCREENING FOR DIABETES 01/27/2011 COLOGUARD 01/27/2021 COLONOSCOPY 01/27/2021 COLORECTAL CANCER SCREENING 01/27/2021 FIT TEST 01/27/2021 FOBT 01/27/2021 SIGMOIDOSCOPY 01/27/2021 VIRTUAL COLONOSCOPY 01/27/2021 BLOOD PRESSURE 03/27/2023 09/27/2022 INFLUENZA VACCINE (#1) 2025 , 05/04/2023, 05/03/2022, Additional history exists COVID-19 VACCINE (2024- season) 2025 05/04/2023, 05/03/2022, 12/19/2021, Additional history exists Adult Td,Tdap Booster 05/14/2034 05/14/2024 SMOKING STATUS SCREENING (Once After 26 Yrs) Completed 05/17/2024 HEPATITIS A VACCINES Aged Out No long er eligible based on patient's age to complete this topic HIB VACCINES Aged Out No longer eligi ble based on patient's age to complete this topic MENINGOCOCCAL VACCINES (ACWY) Aged Out No longer eligible based on patient's age to complete this topic MENINGOCOCCAL VACCINES (B) Aged Out N o longer eligible based on patient's age to complete this topic PNEUMOCOCCAL VACCINES (0-49 years) Aged Out No longer eligible based on patient's age to complete this topic Medical Devices Not on file Insurance [facility] EXPLORER POS [facility] EXPL[facility] POS [facility] EXPL[facility]ER POS [facility] EXPL[facility]ER POS HC EXPLORER POS [facility] EXPL[facility]ER POS Care Teams Drywaller Relationship Specialty Start Date End Date Neil Morris PA [address] [place] [id number] PCP - General Physician [facility] 05/04/24 Additional Source Comments The information contained in this document represents components of the legal health record. It is not the complete legal health record.[facility]
[2025-05-13 10:21] LABS: Hematocrit 43.7 % (42.0-52.0); Hemoglobin 15.1 g/dl (14.0-18.0); Mean Corpuscular HGB Conc 34.6 g/dl (31.0-36.0); Mean Corpuscular Hemoglobin 29.8 pg (27.0-33.0); Mean Corpuscular Volume 86.2 fL (80.0-98.0); NRBC Abs Auto 0.000 X10*3/uL (0.0-0.012); NRBC Pct Auto 0.0 /100WBC (0.0-0.2); Platelet Count 180 X10*3/uL (160-400); Red Blood Count 5.07 X10*6/uL (4.60-5.80); White Blood Count 5.8 X10*3/uL (4.8-10.8)
[2025-05-13 10:55] LABS: Alanine Aminotransferase 68 U/L (0-40); Albumin Level 5.0 g/dL (3.5-5.0); Alkaline Phosphatase 60 U/L (39-117); Anion Gap 11 (12-20); Aspartate Amino Transferase 41 U/L (5-37); Blood Urea Nitrogen 12 mg/dL (9-16); Calcium 9.4 mg/dL (8.4-10.2); Carbon Dioxide 31 mmol/L (22-29); Chloride 106 mmol/L (96-108); Cholesterol 178 mg/dL (<200); Estimated Glomerular Filt Rate > 60; HDL Cholesterol 42 mg/dL (>40); Potassium 4.2 mmol/L (3.3-5.1); Sodium 144 mmol/L (135-145); Total Protein 7.1 g/dL (6.5-8.0); Triglycerides 135 mg/dL (<150)
[2025-05-14 06:33] LABS: Rubeola IgG (Measles) >300.00 AU/mL
== END 2025-05-13 09:41 | disposition home or self-care (01) ==
LOC: HO.LAB 09:40
PROVIDERS: PCP Physician Assistant; Visit Provider Physician Assistant
DX: Z01.84 Encounter for antibody response examination (principal); I10 Essential (primary) hypertension; Z23 Encounter for immunization; E78.2 Mixed hyperlipidemia; R73.09 Other abnormal glucose
CPT/HCPCS: 36415; 80053; 80061; 83036; 85027; 86735; 86762; 86765

== ENCOUNTER 2025-05-16 08:35 | Outpatient (AMB) | payer OTHER, SELFPAY ==
[2025-05-16 08:46] VITALS: BP 144/96; PULSE 77; TEMP 36.3; O2SAT 97; BMI 44.2
--- NOTE | 2025-05-16 08:46 | MHC.PC.OV ---
Vital Signs 05/16/25 08:46 Height 5 ft 10 in Weight 308 lb 6 oz BMI 44.2 BP 144/96 H Blood Pressure Location Lt brachial Position Sitting Pulse 77 Pulse Source Pulse Oximeter Temp 97.3 F Temp Source Temporal Artery Scan Pulse Oximetry (%) 97 Oxygen Delivery Method Room Air Intake Visit Reasons: f/u HTN Allergies No Known Allergies Allergy (Unknown, Verified 05/16/25 08:55) Medication List - Last Reconciled 05/16/25 by Neil Morris PA-C amlodipine 10 mg PO DAILY 90 days atorvastatin 10 mg PO DAILY 90 days clonazepam 1 mg PO BEDTIME 30 days cyclobenzaprine 10 mg PO BEDTIME ibuprofen 800 mg PO Q8H labetalol 200 mg (2 x 100 mg) PO BID 90 days sertraline 100 mg PO DAILY 90 days spironolacton-hydrochlorothiaz 25-25 mg 1 tab PO DAILY 90 days valsartan 160 mg PO DAILY 90 days Tobacco use date assessed: 05/16/25 Dental Screening Dental Screen Date: 05/16/25 Did you have a dental visit in the last 12 months?: No Did you have a dental problem in the last 6 months where you did not have access to dental care?: No Was dental information given to patient?: Patient has dentist HPI f/u HTN HPI Details Patient is a 50-year-old male here today for a follow-up visit . Patient has a past medical history significant for obesity, hypertension, anxiety Hypertension: Blood pressure elevated today in office though has improved from previous. He is on several different blood pressure medications at this time. He otherwise denies any chest pain, shortness for breath, vision issues. He does not regularly monitor blood pressure at home and will start doing so He continues on multiple antihypertensive medications including labetalol, spironolactone hydrochlorothiazide and valsartan. PLAN: Will search for secondary forms of hypertension. Has upcoming renal ultrasound evaluate for renal artery stenosis. We discuss doing a home sleep study though patient declines at this time will consider. .. Class 3 obesity: Patient has unfortunately gained weight since last office visit. Have noted elevations in liver enzymes likely secondary to his weight gain ? Fatty liver disease . .. Anxiety: Continues on high-dose SSRI therapy and daily use of clonazepam 1 mg. We did have a long discussion about benzodiazepine dependency any does agree and understand he is likely dependent on benzodiazepine. Advised to start trying to use clonazepam on an as-needed [id number]-[id number] basis to try to reduce his overall dosing of benzodiazepine any agrees and understands. .. Hyperlipidemia: Recent fasting lipid panel showing appropriate total cholesterol and LDL. Continues on ator 10mg with good effect. 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 1. Little interest or pleasure in doing things: not at all 2. Feeling down, depressed, or hopeless: not at all 3. Trouble falling or staying asleep, or sleeping too much: not at all 4. Feeling tired or having little energy: not at all 5. Poor appetite or overeating: not at all 6. Feeling bad about yourself - or that you are a failure or have let yourself or your family down: not at all 7. Trouble concentrating on things, such as reading the newspaper or watching television: not at all 8. Moving or speaking so slowly that other people could have noticed. Or the opposite - being so fidgety or restless that you have been moving around a lot more than usual: not at all 9. Thoughts that you would be better off or of hurting yourself in some way: not at all Total score: 0 Depression Screening Interpretation: Negative Depression Screening Done: Yes 68154 - PHQ-9 Billing: Yes Source: Developed by Drs. Slava Griffin, Mervin Zeng and colleagues, with an educational chase from [employer]. Thrive Questionnaire Date Thrive assessed: 11/07/24 I am a: Patient What is your living situation today?: I have a steady place to live Within the past 12 months, did the food you bought not last and you didn't have the money to get more?: Never true Within the past 12 months, did you worry whether your food would run out before you got money to buy more?: Never true Do you have trouble paying for medicines?: No Do you have trouble getting transportation to medical appointments?: No Do you have trouble paying your heating and electricity bill?: No Do you have trouble taking care of your child, family member or friend?: No Do you have trouble with day-to-day activities such as bathing, preparing meals, shopping, managing finances, etc.?: No Are you currently unemployed and looking for a job?: No Are you interested in more education?: No Please select the resources that you would like help with: None Currently or been in a relationship where the following occur: No concerns reported THRIVE Score: 0 AUDIT C Alcohol Use Questionnaire (AUDIT-C) 1. How often do you have a drink containing alcohol?: Monthly or less 2. How many drinks containing alcohol do you have on a typical day when you are drinking?: 1 or 2 3. How often do you have six or more drinks on one occasion?: Never Total Score: 1 LAUREN-7 AMB Questionnaire LAUREN-7 Date LAUREN - 7 assessed: 11/14/24 Feeling nervous, anxious, or on edge: 0 = Not at all Not being able to stop or control worryin = Not at all Worrying too much about different things: 0 = Not at all Trouble relaxin = Not at all Being so restless that it is hard to sit still: 0 = Not at all Becoming easily annoyed or irritable: 0 = Not at all Feeling afraid as if something awful might happen: 0 = Not at all Total LAUREN-7 score (0-4 normal; 5-9 mild; 10-14 moderate; 15-21 severe): 0 Source: Developed by Gretchen Coburn. Johan, Mervin Lockhart and colleagues, with an educational chase from [employer]. LAUREN-7 Assessment Billing LAUREN-7 Assessment Tool: LAUREN-7 Assessment 76965 Review of Systems Const Denies headache(s) Eyes Denies loss of vision ENT Denies vertigo, Denies dizziness, Denies headache(s) and Denies sore throat Card Denies chest pain, Denies leg edema and Denies lightheadedness Resp Denies cough, Denies hemoptysis and Denies wheezing GI Denies abdominal pain, Denies melena, Denies constipation, Denies diarrhea and Denies vomiting Denies dysuria, Denies urinary frequency and Denies urinary urgency Musc Denies arthralgias, Denies joint swelling, Denies numbness and Denies tingling Neuro Denies Abnormal speech present, Denies behavioral changes, Denies vertigo, Denies dizziness, Denies headache(s), Denies loss of vision, Denies memory loss, Denies numbness and Denies tingling Psych Denies anxiety, Denies behavioral changes, Denies depression, Denies memory loss and Denies panic attacks Jayy/Lymph Denies easy bleeding and Denies easy bruising Aller/Immun Denies wheezing Physical exam (Primary Care) Vital Signs: Last Vital Signs Temp 97.3 F 05/16/25 08:46 Pulse 77 05/16/25 08:46 BP 144/96 H 05/16/25 08:46 Pulse Ox 97 05/16/25 08:46 Oxygen Delivery Method Room Air 05/16/25 08:46 BMI result Body Mass Index 44.2 Tobacco/Smoking Status: Tobacco use Status Tobacco use date assessed 05/16/25 05/16/25 08:50 Patient Tobacco Use Status Never used Tobacco 05/16/25 08:50 e-Cigarette/Vaping Use Never Used 05/16/25 08:50 PHQ-9: PHQ-9 Score PHQ-9: Total score 0 05/16/25 08:50 Depression Screening Interpretation: Negative Thrive Assessment: Date of Thrive Assessment Date Thrive assessed 11/07/24 05/16/25 08:50 Currently or been in a relationship where the following occur: No concerns reported Const General: healthy appearing, no acute distress, alert and awake Nutritional Appearance: well nourished Orientation/consciousness: oriented to person, oriented to place and oriented to time [facility] Ears: TM's normal bilaterally General nose exam: Normal nasal mucous membranes and turbinates present Eyes Conjunctivae: conjunctivae normal Sclerae: sclerae normal Pupils: Equal, round and reactive pupils present Neck Neck: Yes no lymphadenopathy and Yes no JVD Thyroid: Thyroid normal Carotids: no bruits Resp Effort & Inspection: normal respiratory effort and not tachypneic Auscultation: no crackles, no rales, no rhonchi and no wheezes Cardio Rate: regular rate Rhythm: regular rhythm Heart sounds: no murmurs and normal S1 and S2 GI Palpation (GI): Soft to palpation, nontender, no hepatomegaly and no splenomegaly Auscultation: normal bowel sounds Skin General skin exam: no rashes or lesions noted and dry skin Neuro General: oriented to person, oriented to place and oriented to time Cranial nerves: Yes Equal, round and reactive pupils present Speech: No Abnormal speech present Gait exam (Neuro): Normal gait present Motor exam (neuro): no tremor noted Extrem Right upper extremity: full ROM Left upper extremity: full ROM Right lower extremity: full ROM; no edema Left lower extremity: full ROM; no edema Psych Mental Status: mental status grossly normal Speech and movement: Normal speech and movement present Affect: normal affect Attitude: cooperative Thought process: Normal thought process present Coding Level of Care Code Est Pt Level 4 (60616) Diagnoses Primary hypertension I10 Hypertension type: primary hypertension Impaired glucose metabolism R73.09 Mixed hyperlipidemia E78.2 Hyperlipidemia type: mixed hyperlipidemia Class 3 obesity E66.813 Epidermal cyst L72.0 Elevated liver enzymes R74.8 Additional Codes PHQ-9 - 62863 - PHQ-9 Billing: Yes ([id number]) LAUREN-7 Assessment Billing - LAUREN-7 Assessment Tool: LAUREN-7 Assessment 03746 ([id number]) Assessment & Plan Assessment & Plan (1) HTN (hypertension): Code(s): I10 - Essential (primary) hypertension Category: Medical Qualifiers: Hypertension type: primary hypertension Qualified Code(s): I10 - Essential (primary) hypertension Plan: Blood pressure slightly elevated today in office. He is on multiple blood pressure medications at maximal doses. Will send for renal ultrasound to evaluate for renal artery stenosis as he is on 5 different antihypertensives and blood pressures remain elevated. We also did discuss perhaps testing him for obstructive sleep apnea. Goal blood pressures to be below 140/90 (2) Impaired glucose metabolism: Code(s): R73.09 - Other abnormal glucose Category: Medical Plan: Patient's most recent fasting blood sugar improved. A1c acceptable. He will continue working on lifestyle and dietary modifications to reduce his fasting blood sugar. (3) HLD (hyperlipidemia): Code(s): E78.5 - Hyperlipidemia, unspecified Category: Medical Qualifiers: Hyperlipidemia type: mixed hyperlipidemia Qualified Code(s): E78.2 - Mixed hyperlipidemia Plan: Recent lipid panel showing excellent control of his total cholesterol and LDL. He continues on atorvastatin 10 mg. Goal LDL to remain below 130 (4) Class 3 obesity: Code(s): E66.813 - Obesity, class 3 Category: Medical Plan: Patient does understand his BMI is over 40 and will work on being more physically active and adapting to better eating habits to reduce his weight (5) Epidermal cyst: Code(s): L72.0 - Epidermal cyst Category: Medical Plan: Has a large epidermal cyst over upper mid back, he would like to see general surgeon for removal. (6) Elevated liver enzymes: Code(s): R74.8 - Abnormal levels of other serum enzymes Category: Medical Plan: Noted elevated liver enzymes most recent labs. Has gained weight since last office visit which is likely related. Concerns here for fatty liver disease. We discuss do an ultrasound of his abdomen though will hold off on this for now. He will work on lifestyle and dietary modifications to lose weight Orders: Orders Lipid Panel Today E78.2 - Mixed hyperlipidemia Complete Blood Count no Diff Today E78.2 - Mixed hyperlipidemia Hemoglobin A1c Today R73.09 - Other abnormal glucose Comprehensive [place]. Panel Fast Today E78.2 - Mixed hyperlipidemia Microalbumin, Random (w Creat) Today I10 - Essential (primary) hypertension Referrals General Surgery Referral L72.0 - Epidermal cyst
--- OUTSIDE RECORDS SUMMARY | 2025-05-16 09:06 | XMS_ITS | Clinical Summary ---
Author Organization [facility] Address [address] [phone] Phone Care Team Providers Care Oil Tester Name Role Phone Neil Morris Primary Care [...] topic Medical Devices Not on file Insurance PS[employer] EXPLORER POS PSYCHIATRIC EXPLORER POS PSYCHIATRIC EXPLORER POS PSYCHIATRIC EXPLORER POS HC EXPLORER POS PSYCHIATRIC EXPLORER POS Care Teams Oil Tester Relationship Specialty Start Date End Date Neil Morris PA [address] [place] [id number] PCP - General Physician Drapery Hanger 05/04/24 Additional Source Comments The information contained in this document represents components of the legal health record. It is not the complete legal health record.[facility]
--- OUTSIDE RECORDS SUMMARY | 2025-05-16 09:06 | XMS_ITS | Patient Health Record ---
Author Organization [facility] Address [address] [place] [address] Care Team Providers Care Dye House Supervisor Name Role Phone CELESTE RESENDEZ Primary Care Provider Slava Tilley [phone] Allergies No Known Allergies Reason For Referral No Information Medications Medication SIG (Take, Route, Frequency, Duration) Notes Start Date End Date Status Valsartan 80 MG Oral; Duration: 90 Active amLODIPine Besylate 10 MG Oral; Duration: 30 Active Atorvastatin Calcium 10 MG TAKE 1 TABLET BY MOUTH EVERY DAY Oral; Duration: 90 Active Spironolactone-HCTZ 25-25 MG Oral; Duration: 30 Active Sertraline HCl 100 MG Oral; Duration: 30 Active Labetalol HCl 100 MG Oral; Duration: 30 Active clonazePAM 1 MG Oral; Duration: 30 Active Immunizations Vaccine Route Administration Date Status Comme [...] Problem Status W/U Status Risk Notes Problem Colon cancer screening (506515262) Colon cancer screening (Z12.11) Active confirmed Problem Preprocedural examination ([id number]) Preprocedural examination (Z01.818) Active confirmed Plan Of Treatment No Information Insurance Providers Payer Name Payer Address Payer Phone Subscriber Number Group Number Insured Name Patient Relationship to Insured Coverage Start Date Coverage End Date [employer] [address] [place] [phone] [id number] FLORENCE MCPHERSON Self - patient is the insured Medical (General) History Medical History History ICD Code Seasonal allergies Hypertension Depression/Anxiety Denies SD,DM,CVA,Lung disease,renal dise ase Surgical History Surgery Date(Month/Year) [place] teeth extraction
--- OUTSIDE RECORDS SUMMARY | 2025-05-16 09:06 | XMS_ITS | Clinical Summary ---
Author Organization [facility] Address [address] [place] [address] Care Team Providers Care Outpatient Services Director Name Role Phone Unavailable Primary Care Provider [...]
== END 2025-05-16 09:13 | disposition home or self-care (01) ==
LOC: HO.HMCH 08:36
PROVIDERS: PCP Physician Assistant; Visit Provider Physician Assistant
DX: I10 Essential (primary) hypertension (principal); R73.09 Other abnormal glucose; E66.813 Obesity, class 3; Z68.41 Body mass index [BMI] 40.0-44.9, adult; E78.2 Mixed hyperlipidemia; L72.0 Epidermal cyst; R74.8 Abnormal levels of other serum enzymes

== ENCOUNTER → 2025-05-16 08:35 | Outpatient (BNVA) | payer OTHER, SELFPAY | PROVIDERS: PCP Physician Assistant; Visit Provider Physician Assistant | DX: I10 Essential (primary) hypertension (principal); F41.9 Anxiety disorder, unspecified; R73.09 Other abnormal glucose; E78.2 Mixed hyperlipidemia; L72.0 Epidermal cyst; R74.8 Abnormal levels of other serum enzymes; E66.813 Obesity, class 3; Z68.41 Body mass index [BMI] 40.0-44.9, adult | CPT/HCPCS: 96127 ==

== ENCOUNTER 2025-06-12 09:46 | Outpatient (REF) | payer OTHER, SELFPAY ==
--- NOTE | ~2025-06-12 | US_ITS ---
CLINICAL HISTORY: I10 - Essential (primary) hypertension --- Additional Notes or Special Instructions: Rule out secondary form hypertension, patient on 5 different US Renal with Doppler Comparison: None provided Findings: Right kidney normal size and echotexture, 13.4 cm length. No hydronephrosis. Normal color Doppler. Resistive index 0.6. Left kidney normal size and echotexture, 13.2 cm length. No hydronephrosis. Normal color Doppler. Resistive index 0.7. IMPRESSION: 1. Normal kidneys. No evidence of renal artery stenosis This document has been electronically signed by: Trevin Davila MD on 06/13/2025 09:27:23
--- OUTSIDE RECORDS SUMMARY | 2025-06-12 11:06 | XMS_ITS | Clinical Summary ---
Author Organization [facility] Address [address] [place] [address] Care Team Providers Care Drop Clipper Name Role Phone Unavailable Primary Care Provider [...]
--- OUTSIDE RECORDS SUMMARY | 2025-06-12 11:06 | XMS_ITS | Patient Health Record ---
Author Organization [facility] Address [address] [place] [address] Care Team Providers Care Field Spec Name Role Phone CELESTE RESENDEZ Primary Care Provider Slava Tilley [phone] Allergies No Known Allergies Reason For Referral [...] Status Risk Notes Problem Colon cancer screening (186494988) Colon cancer screening (Z12.11) Active confirmed Problem Preprocedural examination ([id number]) Preprocedural examination (Z01.818) Active confirmed Plan Of Treatment No Information Insurance Providers Payer Name Payer Address Payer Phone Subscriber Number Group Number Insured Name Patient Relationship to Insured Coverage Start Date Coverage End Date [employer] [address] [place] [phone] [id number] FLORENCE MCPHERSON Self - patient is the insured Medical (General) History Medical History History ICD Code Seasonal allergies Hypertension Depression/Anxiety Denies SC,DM,CVA,Lung disease,renal dise ase Surgical History Surgery Date(Month/Year) [place] teeth extraction
--- OUTSIDE RECORDS SUMMARY | 2025-06-12 11:07 | XMS_ITS | Clinical Summary ---
Author Organization [facility] Address [address] [phone] Phone Care Team Providers Care Medical Educator Name Role Phone Neil Morris Primary Care [...] on patient's age to complete this topic IPV VACCINES Aged Out No longer eligi ble [...] topic Medical Devices Not on file [place] [address] [place] [address] [place] [address] [place] [address] EXPLORER POS [facility] EXPLORER POS [facility] EXPLORER POS HC EXPLORER POS [facility] EXPLORER POS Care Teams Medical Educator Relationship Specialty Start Date End Date Neil Morris PA [address] [place] [id number] PCP - General Physician Aquaculture And Fisheries Professor 05/04/24 Additional Source Comments The information contained in this document represents components of the legal health record. It is not the complete legal health record.[facility]
== END 2025-06-12 09:47 | disposition home or self-care (01) ==
LOC: HO.HMGCX 09:46
PROVIDERS: PCP Physician Assistant; Visit Provider Physician Assistant
DX: I10 Essential (primary) hypertension (principal)
CPT/HCPCS: 76775; 93975

== ENCOUNTER → 2025-06-12 09:48 | Outpatient (BNV) | payer OTHER, SELFPAY | PROVIDERS: PCP Physician Assistant; Visit Provider Specialist | DX: I10 Essential (primary) hypertension (principal) | CPT/HCPCS: 76775; 93975 ==

== ENCOUNTER 2025-06-24 13:26 | Outpatient (AMB) | payer OTHER, SELFPAY ==
[2025-06-24 13:30] VITALS: BMI 45.4
--- NOTE | 2025-06-24 13:30 | MHC.OFFVIS ---
Vital Signs 06/24/25 13:30 Height 5 ft 10 in Weight 316 lb 4 oz BMI 45.4 Intake Visit Reasons: Epidermal cyst Intake Note: This patient presents for a epidermal cyst of back. Pt c/o; no complaints. Fuse Cutter Required: No Accompanied by: Self / Same As Patient Allergies No Known Allergies Allergy (Unknown, Verified 06/24/25 13:36) Medication List - Last Reconciled 06/24/25 by Yonatan Hyatt MD amlodipine 10 mg PO DAILY 90 days atorvastatin 10 mg PO DAILY 90 days clonazepam 1 mg PO BEDTIME 30 days cyclobenzaprine 10 mg PO BEDTIME ibuprofen 800 mg PO Q8H labetalol 200 mg (2 x 100 mg) PO BID 90 days sertraline 100 mg PO DAILY 90 days spironolacton-hydrochlorothiaz 25-25 mg 1 tab PO DAILY 90 days valsartan 160 mg PO DAILY 90 days HPI HPI Epidermal cyst: Details: 50-year-old male referred for an epidermal cyst. He has had this lump on his back for what he says has been several months. He says this has has been telling him to see a surgeon for this. He denies any significant drainage or swelling. He denies any trauma or insect bite to the area. 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 [employer] Cognitive needs: No Hearing needs: No Vision needs: No Review of Systems Const Denies chills and Denies fever(s) Card Denies chest pain, Denies dyspnea and Denies dyspnea on exertion Resp Denies cough, Denies dyspnea and Denies dyspnea on exertion GI Denies hematochezia and Denies change in bowel habits Denies hematuria and Denies difficulty urinating Musc Denies back pain and Denies limited range of motion Neuro Denies focal weakness and Denies convulsions Psych Denies depression and Denies mood swings Physical Exam Const Other: Appears overweight General: comfortable and no acute distress Orientation/consciousness: patient oriented x3 Neck Neck: Yes no lymphadenopathy Resp Auscultation: clear to auscultation bilaterally Cardio Rhythm: regular rhythm GI Palpation (GI): Soft to palpation, nontender and no guarding Back/Spine/Pelvis Other: Cystic induration on the upper back, about almost 5 cm in diameter, with a punctum in the middle Neuro General: patient oriented x3 Assessment & Plan Assessment & Plan (1) Epidermal cyst: Code(s): L72.0 - Epidermal cyst Category: Medical Plan He has this large epidermal cyst of the back. I explained to him the option of proceeding with excision. I explained the technique of excision under local anesthesia. This has is good sized, up to 5 cm so it may be a good option as well to do this under anesthesia with MAC. I reviewed the risks including but not limited to bleeding and infections, as well as the benefits and alternatives. He says he has not decided whether to proceed so he will call me as he would like to talk to his about this. Coding Level of Care Code New Pt Level 3 (08808) Diagnoses Epidermal cyst L72.0
--- OUTSIDE RECORDS SUMMARY | 2025-06-24 18:08 | XMS_ITS | Clinical Summary ---
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
--- OUTSIDE RECORDS SUMMARY | 2025-06-24 18:08 | XMS_ITS | Clinical Summary ---
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 It is not the complete legal health record.[facility]
== END 2025-06-24 13:41 | disposition home or self-care (01) ==
LOC: HO.HGS 13:26
PROVIDERS: PCP Physician Assistant; Visit Provider Surgery
DX: L72.0 Epidermal cyst (principal)
CPT/HCPCS: 99203